=== PATIENT | female | born 1975 | race Caucasian/White ===

== ENCOUNTER 2016-03-10 21:33 | Inpatient (IN) | payer BC ==
[2016-03-10] MEDS ORDERED: Albuterol/Ipratropium Neb 3 ML NEB NEB ONE (21:51)
[2016-03-10] MEDS ORDERED: METHYLPREDNISOLONE 125 MG/2 ML VIAL IV ONE (21:54)
--- NOTE | 2016-03-10 21:56 | DIRPT ---
CLINICAL DATA: Cough, congestion for 3 days EXAM: CHEST 2 VIEW COMPARISON: FINDINGS: Cardiomediastinal silhouette is stable. There is patchy infiltrate/ pneumonia in right lower lobe. Follow-up to resolution is recommended. No pulmonary edema. IMPRESSION: Patchy infiltrate/ pneumonia in right lower lobe. Follow-up to resolution after appropriate treatment is recommended. Electronically Signed By: Jerrell Roche M.D. On: 03/10/2016 21:53
--- NOTE | 2016-03-10 21:57 | EDPRACDOC ---
- History of Present Illness Symptoms Started: 1 WEEK HPI: PT PRESENTS TODAY WITH COUGH/CONGESTION AND N/V X 1 WEEK. TNTC VOMITING TODAY. INTERMITTENT/SUBJECTIVE FEVERS. PT STATES SHE WAS SEEN AT [facility] YESTERDAY AND "ALL THEY DID WAS GIVE ME SOME FLUIDS AND SOME ZOFRAN". PT STATES SHE HAS PMH OF ASTHMA AND HAS BEEN OUT OF AN INHALER FOR AWHILE. PT TACHYPNEIC AND UNABLE TO WALK DOWN THE VELEZ W/OUT SEVERE SHOB. PT APPARENTLY IN RESPIRATORY DISTRESS. Symptoms: Reports: Cough, Fever, Nasal Symptoms, Nausea, Vomiting Recent Medications: Reports: None Relevant History Of: Reports: Asthma Shortness of Breath: Moderate Cough Frequency: Persistent Cough Description: Reports: Strong, Congested Rhinorrhea: Reports: None Ear Symptoms: Reports: None Associated Signs and Symptoms: Reports: Cough, Fever, Nausea, Vomiting <Janae Hickman - Last Filed: 03/10/16 22:28> <Cyril Clements - Last Filed: 03/11/16 01:03> - General Information Stated Complaint: FEVER/COUGH Time Seen by Provider: 03/10/16 21:44 Home Medications: Home Medications Albuterol Sulfate [Proventil] 0.5 ml IH Q4-6H PRN 03/29/12 Albuterol Sulfate [Proventil] 0.5 ml NEB Q4-6H PRN 03/29/12 Amoxicillin Trihydrate [Amoxicillin] 500 mg PO TID #30 tab 02/07/15 Allergies/Adverse Reactions: Allergies Allergy/AdvReac Type Severity Reaction Status Date / Time aspirin Allergy Unknown/See Verified 02/07/15 22:06 Comments ciprofloxacin [From Cipro] Allergy Hives* Verified 02/07/15 22:06 ED Past Medical History - History Reviewed Yes Nurses notes reviewed and agree except as marked - Patient Medical History Respiratory History: Reports: Asthma - Social Medical History Smoking Status: Never smoker <Janae Hickman - Last Filed: 03/10/16 22:28> EDM Review of Systems - Review of Systems ROS Negative Except as Marked: Yes All systems reviewed and were negative except as marked Constitutional: Fever, Fatigue Eyes: No Symptoms Reported Ears: No Symptoms Reported Throat: No Symptoms Reported Nose: Congestion Respiratory: Cough, Shortness of Breath, Wheezing, Asthma Cardiovascular: No Symptoms Reported Gastrointestinal: Nausea, Vomiting Genitourinary: No Symptoms Reported Neurological: No Symptoms Reported Musculoskeletal: No Symptoms Reported Integumentary: No Symptoms Reported <Janae Hickman - Last Filed: 03/10/16 22:28> - Physical Exam Constitutional: Alert, Distress Oriented to: Time, Person, Place Last recorded Vital Signs: Last Vital Signs Temp 98.1 F 03/10/16 21:52 Pulse 102 03/10/16 21:52 Resp 28 H 03/10/16 21:52 BP 157/71 03/10/16 21:52 Pulse Ox 89 L 03/10/16 21:52 Oxygen Pulse Oxygen Saturation 89 O2 Device Room Air Oxygen Flow Rate Fraction of Inspired Oxygen ( FIO2) - HEENT Head: Normal Eye Exam: Normal Oropharynx: Normal Tympanic Membrane: Normal ENT EAC: Normal Nose: Congestion Neck: Normal, Denies Pain, Midline - Respiratory/Cardiovascular Respiratory: Rhonchi, Tachypnea, Wheezes Cardiovascular: Tachycardia - GI Palpation: Normal Tenderness: Non tender - Musculoskeletal Back: Normal Extremities: Normal - Integumentary Skin: Normal Lymphatics: Normal - Neurologic Cerebellar: Normal Mood Description: Normal Thought: Coherent Perception: Normal <Janae Hickman - Last Filed: 03/10/16 22:28> - Physical Exam Last recorded Vital Signs: Last Vital Signs Temp 98.1 F 03/10/16 21:52 Pulse 90 03/11/16 00:41 Resp 24 03/11/16 00:41 BP 103/59 L 03/11/16 00:41 Pulse Ox 92 03/11/16 00:41 Oxygen Pulse Oxygen Saturation 92 O2 Device Nasal Cannula Oxygen Flow Rate 4 Fraction of Inspired Oxygen ( FIO2) <Cyril Clements - Last Filed: 03/11/16 01:03> - EKG EKG #1 EKG Time: 22:08 -: Yes EKG interpreted by me Rate: bpm: 82 [place]: Normal Rhythm: NSR Block: None Hypertrophy: None ST: Normal <Janae Hickman - Last Filed: 03/10/16 22:28> - Results 03/10/16 22:28 03/10/16 22:28 WBC 8.4 xk/uL (3.8-10.8) 03/10/16 22:28 RBC 4.64 xM/uL (4.20-5.40) 03/10/16 22:28 Hgb 12.4 g/dL (12.0-16.0) 03/10/16: Hct 37.0 % (36-47) 03/10/16: MCV 80 fL (81-99) L 03/10/16 22: MCH 26.8 pg (27-32) L 03/10/16: MCHC 33.6 g/dl (33-36) 03/10/16: RDW 13.8 % (11.5-14.5) 03/10/16 22: Plt Count 205 xk/uL (130-400) 03/10/16: MPV 9.9 fL (7.4-10.4) 03/10/16: Neut % (Auto) 65.7 % (45-76) 03/10/16: Lymph % (Auto) 26.4 % (17-44) 03/10/16: Power % (Auto) 5.1 % (3-10) 03/10/16: Eos % (Auto) 1.5 % (0-5) 03/10/16: Baso % (Auto) 1.3 % (0-2) 03/10/16: Absolute Neuts (auto) 5.46 xk/uL (1.7-8.2) 03/10/16: Absolute Lymphs (auto) 2.18 xk/uL (0.65-4.75) 03/10/16: PT 10.6 SEC (9.2-11.2) 03/10/16: INR 1.0 03/10/16 22: APTT 27.9 SEC (22-35) 03/10/16 22: Puncture Site Right radial 03/10/16 22:00 pH 7.400 pH UNITS (7.35-7.45) 03/10/16 22:00 pCO2 36.0 mmHg (35-45) 03/10/16 22:00 pO2 57.0 mmHg (80-100) L 03/10/16 22:00 HCO3 22.3 MMOL/L (22-26) 03/10/16 22:00 Total CO2 23.4 MMOL/L (23-27) 12/24/16 22:00 Base Excess -2.0 (+/- 2) 03/10/16 22:00 FiO2 % 21 03/10/16 22:00 Specimen Drawn By Canlar 03/10/16 22:00 Sodium 139 mEq/L (137-146) 03/10/16 22:28 Potassium 3.6 mEq/L (3.5-5.1) 03/10/16 22:28 Chloride 103 mEq/L (98-107) 03/10/16 22:28 Carbon Dioxide 23 mMOL/L (22-33) 03/10/16 22:28 Anion Gap 17 mEq/L (8-16) H 03/10/16 22:28 BUN 11 MG/DL (7-17) 03/10/16 22:28 Creatinine 0.80 MG/DL (0.52-1.04) 03/10/16 22:28 Estimated GFR (MDRD) > 60 mL/min (>=60) 03/10/16 22:28 Glucose 119 MG/DL (70-99) H 03/10/16 22:28 Calculated Osmolality 268 MOs/Kg (270-290) L 03/10/16 22:28 Calcium 8.0 MG/DL (8.4-10.2) L 03/10/16 22:28 Corrected Calcium 8.3 MG/DL (8.4-10.2) L 03/10/16 22:28 Total Bilirubin 0.4 MG/DL (0.2-1.3) 03/10/16 22:28 AST 50 IU/L (14-36) H 03/10/16 22:28 ALT 40 IU/L (9-52) 03/10/16 22:28 Alkaline Phosphatase 84 IU/L (38-126) 03/10/16 22:28 Troponin I < 0.01 ng/mL (<.04) 03/10/16 22:28 Total Protein 7.2 G/DL (6.3-8.2) 03/10/16 22:28 Albumin 3.7 G/DL (3.5-5.0) 03/10/16 22:28 Urine Color Yellow 03/10/16 23:38 Urine Clarity Cldy 03/10/16 23:38 Urine pH 5.0 (5.0-8.0) 03/10/16 23:38 Ur Specific [place] 1.030 (1.003-1.035) 03/10/16 23:38 Urine Protein 1+ (NEG/TRACE) H 03/10/16 23:38 Urine Glucose (UA) Neg (NEGATIVE) 03/10/16 23:38 Urine Ketones 3+ (NEGATIVE) H 03/10/16 23:38 Urine Occult Blood Neg (NEG/TRACE) 03/10/16 23:38 Urine Nitrite Neg (NEGATIVE) 03/10/16 23:38 Urine Bilirubin Neg (NEGATIVE) 03/10/16 23:38 Urine Urobilinogen <2.0 MG/DL (0-1) 03/10/16 23:38 Ur Leukocyte Esterase Neg (NEGATIVE) 03/10/16 23:38 Urine RBC 0-2 (0-5) 03/10/16 23:38 Urine WBC 0-2 (0-5) 03/10/16 23:38 Ur Epithelial Cells 3+ 03/10/16 23:38 Urine Bacteria Few (NEG/FEW) 03/10/16 23:38 Urine Mucus Occ (NEG/OCC) 03/10/16 23:38 Lab Results 03/10/16 03/10/16 03/10/16 23:38 22:28 22:28 WBC 8.4 RBC 4.64 Hgb 12.4 Hct 37.0 MCV 80 L MCH 26.8 L MCHC 33.6 RDW 13.8 Plt Count 205 MPV 9.9 Neut % (Auto) 65.7 Lymph % (Auto) 26.4 Power % (Auto) 5.1 Eos % (Auto) 1.5 Baso % (Auto) 1.3 Absolute Neuts (auto) 5.46 Absolute Lymphs (auto) 2.18 PT 10.6 INR 1.0 APTT 27.9 Puncture Site pH pCO2 pO2 HCO3 Total CO2 Base Excess FiO2 % Specimen Drawn By Sodium Potassium Chloride Carbon Dioxide Anion Gap BUN Creatinine Estimated GFR (MDRD) Glucose Calculated Osmolality Calcium Corrected Calcium Total Bilirubin AST ALT Alkaline Phosphatase Troponin I Total Protein Albumin Urine Color Yellow Urine Clarity Cldy Urine pH 5.0 Ur Specific [place] 1.030 Urine Protein 1+ H Urine Glucose (UA) Neg Urine Ketones 3+ H Urine Occult Blood Neg Urine Nitrite Neg Urine Bilirubin Neg Urine Urobilinogen <2.0 Ur Leukocyte Esterase Neg Urine RBC 0-2 Urine WBC 0-2 Ur Epithelial Cells 3+ Urine Bacteria Few Urine Mucus Occ 03/10/16 03/10/16 22:28 22:00 WBC RBC Hgb Hct MCV MCH MCHC RDW Plt Count MPV Neut % (Auto) Lymph % (Auto) Power % (Auto) Eos % (Auto) Baso % (Auto) Absolute Neuts (auto) Absolute Lymphs (auto) PT INR APTT Puncture Site Right radial pH 7.400 pCO2 36.0 pO2 57.0 L HCO3 22.3 Total CO2 23.4 Base Excess -2.0 FiO2 % 21 Specimen Drawn By Canlar Sodium 139 Potassium 3.6 Chloride 103 Carbon Dioxide 23 Anion Gap 17 H BUN 11 Creatinine 0.80 Estimated GFR (MDRD) > 60 Glucose 119 H Calculated Osmolality 268 L Calcium 8.0 L Corrected Calcium 8.3 L Total Bilirubin 0.4 AST 50 H ALT 40 Alkaline Phosphatase 84 Troponin I < 0.01 Total Protein 7.2 Albumin 3.7 Urine Color Urine Clarity Urine pH Ur Specific [place] Urine Protein Urine Glucose (UA) Urine Ketones Urine Occult Blood Urine Nitrite Urine Bilirubin Urine Urobilinogen Ur Leukocyte Esterase Urine RBC Urine WBC Ur Epithelial Cells Urine Bacteria Urine Mucus <Cyril Clements - Last Filed: 03/11/16 01:03> - Departure Disposition: Admit IP To This Hospital <Janae Hickman - Last Filed: 03/10/16 22:28> - Departure Yes I personally saw and evaluated the patient. Disposition: Admit IP To This Hospital Decision to Admit Time: 01:02 Decision to admit date: 03/11/16 Decision to admit: from ED - Physician Consulted Hospitalist Time Called: 01:03 Provider Called: Elida Randolph Time Security Agent Returned Call: 01:03 <Cyril Clements - Last Filed: 03/11/16 01:03> - Departure Condition: Stable Final Diagnosis: Hypoxia, Dehydration Pneumonia Qualifiers: Pneumonia type: due to unspecified organism Laterality: right Lung location: lower lobe of lung Qualified Code(s): J18.1 - Lobar pneumonia, unspecified organism Nausea & vomiting Qualifiers: Vomiting type: unspecified Vomiting Intractability: non-intractable Qualified Code(s): R11.2 - Nausea with vomiting, unspecified
[2016-03-10] MEDS ORDERED: ONDANSETRON HCL 4 MG/2 ML VIAL IV ONE (22:00)
[2016-03-10 22:05] LABS: ALLEN'S TEST PASS
[2016-03-10 22:06] LABS: ABG Draw Site Right Radial; TCO2 23.4 MMOL/L (23-27)
[2016-03-10] MEDS ORDERED: ACETAMINOPHEN WITH CODEINE 5 ML UDC PO ONE (22:27)
[2016-03-10] MEDS ORDERED: AZITHROMYCIN 500 MG in D5W 250 ML IV ONE (22:29)
[2016-03-10] MEDS ORDERED: CEFTRIAXONE 1 GM in D5W 100 ML IV ONE (22:29)
[2016-03-10 22:38] LABS: AUTOMATED BASOPHIL 1.3 % (0-2); AUTOMATED EOSINOPHIL 1.5 % (0-5); AUTOMATED LYMPH 26.4 % (17-44); AUTOMATED MONOCYTE 5.1 % (3-10); AUTOMATED NEUTROPHIL 65.7 % (45-76); MPV 9.9 fL (7.4-10.4)
[2016-03-10 22:47] LABS: PARTIAL THROMB. TIME 27.9 SEC (22-35)
[2016-03-10 22:48] LABS: BLOOD UREA NITROGEN 11 MG/DL (7-17); CALC CORRECTED 8.3 MG/DL (8.4-10.2); CALCULATED OSMOLALITY 268 MOs/Kg (270-290); CHLORIDE 103 mEq/L (98-107); GLUCOSE 119 MG/DL (70-99); SODIUM LEVEL 139 mEq/L (137-146); TOTAL PROTEIN 7.2 G/DL (6.3-8.2)
[2016-03-10] MEDS: NS 1,000 ML IV SCH (23:11)
[2016-03-10 23:56] LABS: LEUKOCYTES/URINE NEG (NEGATIVE); NITRITE/URINE NEG (NEGATIVE); RBC/URINE 0-2 (0-5); URINE OCCULT BLOOD NEG (NEG/TRACE); WBC/URINE 0-2 (0-5)
[2016-03-11] MEDS ORDERED: NS 1,000 ML IV ONE (00:59)
[2016-03-11] MEDS ORDERED: BENZONATATE 100 MG PERLES PO PRN (01:05)
[2016-03-11] MEDS ORDERED: SIMETHICONE 80 MG TAB PO PRN (01:05)
[2016-03-11] MEDS ORDERED: TEMAZEPAM 15 MG CAP PO PRN (01:05)
[2016-03-11] MEDS ORDERED: ACETAMINOPHEN 325 MG/TAB TABLET PO PRN (01:05)
[2016-03-11] MEDS ORDERED: ONDANSETRON HCL 4 MG/2 ML VIAL IV PRN (01:05)
[2016-03-11] MEDS ORDERED: METOCLOPRAMIDE 10 MG/2 ML VIAL IV PRN (01:05)
[2016-03-11] MEDS ORDERED: ACETAMINOPHEN 650 MG SUPP PR PRN (01:05)
[2016-03-11] MEDS ORDERED: GUAIFEN 100 MG-DEXTROMETH 10 MG PER 5 ML PO PRN (01:09)
--- NOTE | 2016-03-11 01:10 | HISTPHYS ---
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 She states she has been sick with nausea and vomiting for 3-4 days and low grade fevers and chills, but was afraid to miss work. She went to [facility] two nights ago, but was diagnosed with gastroenteritis and discharged home. Since then she has been wheezing, coughing, and hoarse with progressive difficulty breathing. She presented to our ED tonight for evaluation and a chest x-ray showed a right lower lobe pneumonia. Her pO2 is only 57 on room air. She does not smoke. She will be admitted for evaluation and management of pneumonia and hypoxia. - Medical History Cardiac History: Reports: Hypertension Respiratory History: Reports: Asthma, Cough GI/ History: Reports: No Significant History Musculoskeletal History: Reports: No Significant History Systemic History: Reports: Anemia, Other (dysfunctional uterine bleeding) Neurological History: Reports: No Significant History Psychological History: Reports: Depression, Anxiety - Surgical History Reports: Hysterectomy, Tonsillectomy/Adnoidectomy - Medictions/Allergies Allergies aspirin Allergy (Verified 02/07/15 22:06) Unknown/See Comments VOMITING ciprofloxacin [From Cipro] Allergy (Verified 02/07/15 22:06) Hives* Current Medication List: Reviewed Home Medications Albuterol Sulfate [Proventil] 0.5 ml IH Q4-6H PRN 03/29/12 Albuterol Sulfate [Proventil] 0.5 ml NEB Q4-6H PRN 03/29/12 Amoxicillin Trihydrate [Amoxicillin] 500 mg PO TID #30 tab 02/07/15 - Family History Reports: Hypertension, Diabetes, Cardiac Disorders - Social History Travel Outside of [place] in the Last 3 Months?: No Lives: With Family Smoking Status: Former smoker Social History: Denies: Alcohol Use - Review of Systems Constitutional: Chills, Fever, Weakness Eyes: No Symptoms Reported Ears: No Symptoms Reported Nose: No Symptoms Reported Mouth: No Symptoms Reported Throat/Neck: Pain, Hoarseness Respiratory: Cough, Shortness of Breath, Wheezing, Asthma Cardiovascular: Chest Pain Gastrointestinal: Nausea, Vomiting Genitourinary: Other (s/p hysterectomy) Neurological: Dizziness, Headache, Weakness Musculoskeletal:: Weakness Integumentary: No Symptoms Reported Allergic/Immunologic: No Symptoms Reported Hematologic: No Symptoms Reported Endocrine: Weight Gain Psychiatric: Anxiety, Depression - Physical Exam Vital Signs: Initial Vitals Temperature 98.1 F 03/10/16 21:52 Pulse Rate 102 03/10/16 21:52 Respiratory Rate 28 H 03/10/16 21:52 Blood Pressure 157/71 03/10/16 21:52 Pulse Oxygen Saturation 89 L 03/10/16 21:52 Constitutional: Alert, Distress (difficulty breathing), Restless Oriented to: Time, Person, Place - HEENT Head: Normal Eye: Normal (PERRL; EOMI) Oropharynx: Normal, Red (posterior pharynx). negative: Exudate, Tonsillar Hypertrophy, [place] Tympanic Membrane: Normal ENT EAC: Normal Nose: negative: Bleeding, Congestion, Discharge, Deformity Respiratory: Rales, Rhonchi, Tachypnea, Wheezes Cardiovascular: Tachycardia - GI Auscultation: Normal Palpation: Normal. negative: Enlarged liver, Enlarged spleen, Fluid Wave, Mass Tenderness: Non tender Bailey's Sign: Negative Rectal Exam: Deferred - Exam Deferred: Yes - Musculoskeletal Back: Normal. negative: CVA Tenderness Extremities: Normal, Pedal Pulse (normal), Radial Pulse (noraml). negative: Calf Tenderness, Clubbing, Cyanosis, Edema Spine: normal alignment, normal inspection - Integumentary Skin: Hot, Dry, Flushed Lymphatics: Normal - Neurologic Memory Impaired: Normal Motor Function: Normal Cranial Nerve: Normal Cerebellar: Normal Mood Description: Anxious Thought: Coherent Perception: Normal - Focused CV Perfusion Exam Date exam occurred: 03/11/16 Time of Exam: 01:15 Vital Signs: Last Vital Signs Temp 98.1 F 03/10/16 21:52 Pulse 90 03/11/16 00:41 Resp 24 03/11/16 00:41 BP 103/59 L 03/11/16 00:41 Pulse Ox 92 03/11/16 00:41 Respiratory: Accessory muscle use, Rales, Rhonchi Cardiovascular/Chest: Tachycardia Peripheral pulses: Full: Radial (R), Radial (L), Dorsalis pedis (R), Dorsalis pedis (L), Posterior tibialis (R), Posterior tibialis (L) Skin Color: Flushed Skin Turgor: <3 Seconds - Lab Results Laboratory Tests 03/10/16 03/10/16 03/10/16 22:00 22:28 22:28 WBC 8.4 Hgb 12.4 Hct 37.0 Plt Count 205 Neut % (Auto) 65.7 Lymph % (Auto) 26.4 PT INR APTT Puncture Site Right radial pH 7.400 pCO2 36.0 pO2 57.0 L HCO3 22.3 Total CO2 23.4 Base Excess -2.0 FiO2 % 21 Sodium 139 Potassium 3.6 Chloride 103 Carbon Dioxide 23 Anion Gap 17 H BUN 11 Creatinine 0.80 Estimated GFR (MDRD) > 60 Glucose 119 H Calculated Osmolality 268 L Corrected Calcium 8.3 L AST 50 H ALT 40 Troponin I < 0.01 Urine Color Urine Clarity Urine pH Ur Specific [place] Urine Protein Urine Glucose (UA) Urine Ketones Urine Nitrite Urine RBC Urine WBC Urine Bacteria 03/10/16 03/10/16 22:28 23:38 WBC Hgb Hct Plt Count Neut % (Auto) Lymph % (Auto) PT 10.6 INR 1.0 APTT 27.9 Puncture Site pH pCO2 pO2 HCO3 Total CO2 Base Excess FiO2 % Sodium Potassium Chloride Carbon Dioxide Anion Gap BUN Creatinine Estimated GFR (MDRD) Glucose Calculated Osmolality Corrected Calcium AST ALT Troponin I Urine Color Yellow Urine Clarity Cldy Urine pH 5.0 Ur Specific [place] 1.030 Urine Protein 1+ H Urine Glucose (UA) Neg Urine Ketones 3+ H Urine Nitrite Neg Urine RBC 0-2 Urine WBC 0-2 Urine Bacteria Few - Diagnostic Findings CXR: IMPRESSION: Patchy infiltrate/ pneumonia in right lower lobe. Follow-up to resolution after appropriate treatment is recommended. Electronically Signed By: Jerrell Roche M.D. On: 03/10/2016 21:53 - Assessment (1) Sepsis A41.9 - SEPSIS, UNSPECIFIED ORGANISM Acute Present on Admission: Yes Qualifiers: Sepsis type: sepsis due to unspecified organism Qualified Code(s): A41.9 - Sepsis, unspecified organism Admit. Sepsis is characterized by tachypnea, tachycardia, fever, pneumonia, and hypoxia. Will obtain appropriate blood cultures attempt to obtain sputum for culture, and begin broad spectrum antibiotics. Begin aggressive fluid resuscitation. (2) Pneumonia J18.9 - PNEUMONIA, UNSPECIFIED ORGANISM Acute Present on Admission: Yes Qualifiers: Pneumonia type: aspiration pneumonia Laterality: right Lung location: lower lobe of lung Qualified Code(s): J18.1 - Lobar pneumonia, unspecified organism Quite possibly an aspiration pneumonia resulting from her recent viral gastroenteritis. However, it may be community acquired pneumonia that caused nausea & vomiting as part of the toxicity of the infection. Will treat with Rocephin and Zithromax initially, and follow along. (3) Hypoxia R09.02 - HYPOXEMIA Acute Present on Admission: Yes Provide supplemental oxygen, monitor O2 saturation, keep sats above 92%. Check ABG and CXR intermittently in follow-up. (4) Dehydration E86.0 - DEHYDRATION Acute Present on Admission: Yes IV fluids for rehydration. 30 mL/kg initially in the first 6 hrs, then maintenance fluids. (5) Nausea & vomiting R11.2 - NAUSEA WITH VOMITING, UNSPECIFIED Acute Present on Admission: Yes Qualifiers: Vomiting type: unspecified Vomiting Intractability: non-intractable Qualified Code(s): R11.2 - Nausea with vomiting, unspecified Anti-emetics as needed. Case Care Discussed with: Patient, Nursing Staff Total Time: 65 min Critical Care: Yes Couseling Time (>50% in counseling/coordination): No Code: 291
[2016-03-11] MEDS: NS 1,000 ML IV SCH ×5 (01:17→04:26)
[2016-03-11] MEDS ORDERED: GLUCAGON 1 MG VIAL SQ PRN (01:52)
[2016-03-11] MEDS ORDERED: GLUCOSE (ORAL GEL) 15 GM TUBE PO PRN (01:52)
[2016-03-11] MEDS ORDERED: DEXTROSE 25 GM/50 ML PFS IV PRN (01:52)
[2016-03-11] MEDS ORDERED: METHYLPREDNISOLONE 125 MG/2 ML VIAL IV ONE (02:00)
[2016-03-11] MEDS: Albuterol/Ipratropium Neb 3 ML NEB NEB SCH ×4 (02:46→19:57)
[2016-03-11] MEDS ORDERED: Vaccine Screening Complete SCH (03:00)
[2016-03-11] MEDS: SODIUM CHLORIDE 0.9% 3 ML FLUSH FLUSH SCH ×2 (05:06→17:41)
[2016-03-11] MEDS: REGULAR INSULIN 100 UNITS/ML - 3 ML VIAL SQ SCH ×4 (06:25→21:39)
[2016-03-11] MEDS ORDERED: METHYLPREDNISOLONE 125 MG/2 ML VIAL IV SCH (08:00)
[2016-03-11] MEDS: TUSSIONEX 5 ML ORAL SYRINGE PO SCH ×2 (11:12→21:38)
[2016-03-11] MEDS: BENZONATATE 100 MG PERLES PO SCH ×2 (11:12→17:43)
[2016-03-11] MEDS: PROBIOTIC BLEND TAB PO SCH ×2 (11:15→17:41)
[2016-03-11] MEDS ORDERED: OXYMETAZOLINE 0.05% NASAL SPRAY NAS SCH (14:00)
[2016-03-11] MEDS ORDERED: PROBIOTIC BLEND TAB PO SCH ×2 (14:00→18:00)
[2016-03-11] MEDS ORDERED: FLUTICASONE PROPIONATE 16 GM BOT NAS SCH (14:00)
[2016-03-11] MEDS: FLUTICASONE PROPIONATE 16 GM BOT NAS SCH ×2 (14:19→21:39)
[2016-03-11] MEDS: METHYLPREDNISOLONE 125 MG/2 ML VIAL IV SCH ×2 (14:19→21:39)
[2016-03-11] MEDS: OXYMETAZOLINE 0.05% NASAL SPRAY NAS SCH ×2 (14:19→21:40)
[2016-03-11] MEDS: AZITHROMYCIN 250 MG TAB PO SCH (17:41)
[2016-03-11] MEDS ORDERED: ZOLPIDEM TARTRATE 5 MG TAB PO SCH (21:00)
[2016-03-11] MEDS: AZITHROMYCIN 500 MG in D5W 250 ML IV SCH (21:38)
[2016-03-11] MEDS: MONTELUKAST SODIUM 10 MG TAB PO SCH (21:40)
[2016-03-11] MEDS: Albuterol/Ipratropium Neb 3 ML NEB NEB PRN (22:28)
[2016-03-11] MEDS: CEFTRIAXONE 1 GM in D5W 100 ML IV SCH (23:38)
[2016-03-12] MEDS: Albuterol/Ipratropium Neb 3 ML NEB NEB SCH ×4 (01:49→19:34)
[2016-03-12] MEDS: BENZONATATE 100 MG PERLES PO SCH ×3 (02:09→17:41)
[2016-03-12] MEDS: METHYLPREDNISOLONE 125 MG/2 ML VIAL IV SCH ×5 (02:10→21:11)
[2016-03-12] MEDS: SODIUM CHLORIDE 0.9% 3 ML FLUSH FLUSH SCH ×2 (05:29→17:40)
[2016-03-12 05:39] LABS: AUTOMATED BASOPHIL 0.2 % (0-2); AUTOMATED LYMPH 15.9 % (17-44); AUTOMATED MONOCYTE 3.6 % (3-10); AUTOMATED NEUTROPHIL 80.3 % (45-76); MPV 10.2 fL (7.4-10.4)
[2016-03-12 05:57] LABS: BLOOD UREA NITROGEN 7 MG/DL (7-17); CALCULATED OSMOLALITY 273 MOs/Kg (270-290); CHLORIDE 106 mEq/L (98-107); GLUCOSE 142 MG/DL (70-99); SODIUM LEVEL 142 mEq/L (137-146)
[2016-03-12] MEDS: REGULAR INSULIN 100 UNITS/ML - 3 ML VIAL SQ SCH ×4 (06:07→21:15)
[2016-03-12] MEDS ORDERED: PNEUMOCOCCAL 0.5 ML VIAL IM ONE (08:00)
--- NOTE | 2016-03-12 08:17 | GENMEDPROG ---
Chief Complaint: sl less sob coughing minimal sputum production Complains of hallucinating with Ambien last night. Notes Reviewed: Yes Events from last night noted and discussed with Clinical Staff Current Medication List: Reviewed Currently: Reports: Cough, Wheezing, [place] DVT Prophylaxis: Yes - Physical Examination Vital Signs and I&O: Last Vital Signs Temp 97.5 F 03/12/16 05:09 Pulse 73 03/12/16 07:48 Resp 18 03/12/16 07:48 BP 111/70 03/12/16 05:09 Pulse Ox 93 03/12/16 07:48 Oxygen Pulse Oxygen Saturation 93 O2 Device Nasal Cannula Oxygen Flow Rate 3 Fraction of Inspired Oxygen ( FIO2) Intake & Output 03/09/16 03/10/16 03/11/16 03/12/16 23:59 23:59 23:59 23:59 Intake Total 5017 398 Output Total 4000 400 Balance 1017 -2 Patient's weight 110.336 kg 111.175 kg General: Alert, Oriented x3, No acute distress, Well appearing, Well nourished HEENT: Normal (Normocephalic, atraumatic;EOMI.Sclera white, Nares patent, without discharge or bleeding. No oropharyngeal lesions or erythema. Mucous membranes are dry.) Neck: Non-tender, Full range of motion, Normal Trachea alignment, Normal inspection (No cervical lymphadenopathy. No supraclavicular lymphadenopathy.), No Masses palpable, Supple Lymphatics: Normal Respiratory: Rales, Rhonchi, Wheezes Cardiovascular: Regular rate and rhythm (No bradycardia or tachycardia), Normal S1, No Gallops,Rubs/Murmurs, Normal S2, Good Pedal Pulses (DP pulses 2+ bilaterally) GI: Normal bowel sounds (normal active sounds), Soft (non-distended), Non tender , No hepatospenomegaly, No masses Extremities/Musculoskeletal: Normal pulses (DP pulses 2+ bilaterally) Skin: Warm,Dry and Intact, No rashes, No significant lesion Neurological: Strength at 5/5 X4 ext (Motor 5/5 throughout.), Normal tone, Cranial nerves 3-12 NL ( 2-12 grossly intact.) Psych/Mental Status: Appropriate, Normal Affect Lab/DI/Studies Reviewed: 03/12/16 05:12 03/12/16 05:12 Laboratory Results - last 24 hr 03/11/16 03/11/1603/11/16 10:40 11:02 17:14 WBC RBC Hgb Hct MCV MCH MCHC RDW Plt Count MPV Neut % (Auto) Lymph % (Auto) [place] % (Auto) Eos % (Auto) Baso % (Auto) Absolute Neuts (auto) Absolute Lymphs (auto) Sodium Potassium Chloride Carbon Dioxide Anion Gap BUN Creatinine Estimated GFR (MDRD) Glucose POC Capillary Glucose 206 H 157 H Calculated Osmolality Lactic Acid 2.2 H Calcium 03/11/16 03/12/16 03/12/16 20:56 04:52 05:12 WBC RBC Hgb Hct MCV MCH MCHC RDW Plt Count MPV Neut % (Auto) Lymph % (Auto) [place] % (Auto) Eos % (Auto) Baso % (Auto) Absolute Neuts (auto) Absolute Lymphs (auto) Sodium 142 Potassium 4.0 Chloride 106 Carbon Dioxide 26 Anion Gap 14 BUN 7 Creatinine 0.60 Estimated GFR (MDRD) > 60 Glucose 142 H POC Capillary Glucose 204 H 144 H Calculated Osmolality 273 Lactic Acid Calcium 8.0 L 03/12/16 05:12 WBC 7.5 RBC 4.51 Hgb 12.0 Hct 36.5 MCV 81 MCH 26.6 L MCHC 32.9 L RDW 14.6 H Plt Count 203 MPV 10.2 Neut % (Auto) 80.3 H Lymph % (Auto) 15.9 L [place] % (Auto) 3.6 Eos % (Auto) 0.0 Baso % (Auto) 0.2 Absolute Neuts (auto) 6.00 Absolute Lymphs (auto) 1.13 Sodium Potassium Chloride Carbon Dioxide Anion Gap BUN Creatinine Estimated GFR (MDRD) Glucose POC Capillary Glucose Calculated Osmolality Lactic Acid Calcium - Assessment (1) Pneumonia Acute J18.9 - PNEUMONIA, UNSPECIFIED ORGANISM Qualifiers: Pneumonia type: aspiration pneumonia Laterality: right Lung location: lower lobe of lung Comment/Plan: Quite possibly an aspiration pneumonia resulting from her recent viral gastroenteritis. However, it may be community acquired pneumonia that caused nausea & vomiting as part of the toxicity of the infection. Will treat with Rocephin and Zithromax initially, and follow along. (2) Hypoxia Acute R09.02 - HYPOXEMIA Comment/Plan: Provide supplemental oxygen, monitor O2 saturation, keep sats above 92%. Check ABG and CXR intermittently in follow- up. (3) Impaired glucose tolerance Acute R73.02 - IMPAIRED GLUCOSE TOLERANCE (ORAL) Comment/Plan: hgb a1c microalb pd. Steroids going to make this worse. Ssi ordered (4) Asthma Acute J45.909 - UNSPECIFIED ASTHMA, UNCOMPLICATED Qualifiers: Asthma severity: moderate persistent Asthma complication type: with acute exacerbation Qualified Code(s): J45.41 - Moderate persistent asthma with ( acute) exacerbation Comment/Plan: singulair steroids nebs helping some (5) Sepsis Resolved A41.9 - SEPSIS, UNSPECIFIED ORGANISM Qualifiers: Sepsis type: sepsis due to unspecified organism Qualified Code(s): A41.9 - Sepsis, unspecified organism Comment/Plan: Patient doing much better now sepsis appears resolved. Case Care Discussed with: Patient, Nursing Staff Education/Counseling Given To: Patient Education/Counseling Given Regarding: Diagnosis Total Time: 39 min Critical Care: No Code: 70394 (12+)
[2016-03-12] MEDS: OXYMETAZOLINE 0.05% NASAL SPRAY NAS SCH ×2 (09:11→21:11)
[2016-03-12] MEDS: FLUTICASONE PROPIONATE 16 GM BOT NAS SCH ×2 (09:12→21:11)
[2016-03-12] MEDS: TUSSIONEX 5 ML ORAL SYRINGE PO SCH ×2 (09:17→21:10)
[2016-03-12] MEDS: PROBIOTIC BLEND TAB PO SCH ×2 (11:59→17:39)
[2016-03-12] MEDS: ENOXAPARIN 60 MG/0.6 ML PFS SQ SCH (17:39)
[2016-03-12] MEDS: AZITHROMYCIN 250 MG TAB PO SCH (17:40)
[2016-03-12] MEDS: MONTELUKAST SODIUM 10 MG TAB PO SCH (21:11)
[2016-03-12] MEDS: AZITHROMYCIN 500 MG in D5W 250 ML IV SCH (21:11)
[2016-03-12] MEDS: DOCUSATE-SENNA CONCENTRATE TAB PO PRN (21:11)
[2016-03-12] MEDS: CEFTRIAXONE 1 GM in D5W 100 ML IV SCH (23:06)
[2016-03-13] MEDS: Albuterol/Ipratropium Neb 3 ML NEB NEB SCH ×4 (02:42→19:55)
[2016-03-13] MEDS: METHYLPREDNISOLONE 125 MG/2 ML VIAL IV SCH ×4 (03:04→22:16)
[2016-03-13] MEDS: BENZONATATE 100 MG PERLES PO SCH ×3 (03:04→18:11)
[2016-03-13] MEDS ORDERED: NS 500 ML IV ONE (04:46)
[2016-03-13] MEDS: REGULAR INSULIN 100 UNITS/ML - 3 ML VIAL SQ SCH ×4 (05:33→21:06)
[2016-03-13] MEDS: SODIUM CHLORIDE 0.9% 3 ML FLUSH FLUSH SCH ×2 (05:33→18:11)
[2016-03-13] MEDS: OXYMETAZOLINE 0.05% NASAL SPRAY NAS SCH ×2 (08:00→22:15)
[2016-03-13] MEDS ORDERED: PNEUMOCOCCAL 0.5 ML VIAL IM ONE (08:00)
[2016-03-13] MEDS: FLUTICASONE PROPIONATE 16 GM BOT NAS SCH ×2 (08:01→22:15)
[2016-03-13] MEDS: TUSSIONEX 5 ML ORAL SYRINGE PO SCH ×2 (09:19→22:34)
--- NOTE | 2016-03-13 10:07 | GENMEDPROG ---
Chief Complaint: Patient resting awakened easily. Subjective Note: 40-year-old female admitted to our facility with pneumonia and hypoxemia. She slowly improving but still requiring oxygen by nasal cannula. Notes Reviewed: Yes Events from last night noted and discussed with Clinical Staff Current Medication List: Reviewed Currently: Reports: Cough, Wheezing, VELASQUEZ DVT Prophylaxis: Yes - Physical Examination Vital Signs and I&O: Last Vital Signs Temp 97.6 F 03/13/16 05:36 Pulse 88 03/13/16 05:36 Resp 18 03/13/16 05:36 BP 101/61 03/13/16 05:36 Pulse Ox 92 03/13/16 09:28 Oxygen Pulse Oxygen Saturation 92 O2 Device Nasal Cannula Oxygen Flow Rate 4 Fraction of Inspired Oxygen ( FIO2) Intake & Output 03/10/16 03/11/16 03/12/16 03/13/16 23:59 23:59 23:59 23:59 Intake Total 5017 1118 685 Output Total 4000 2300 1200 Balance 7205 -2602 -482 Patient's weight 110.336 kg 111.175 kg 111.221 kg General: Alert, Oriented x3, No acute distress, Well appearing, Well nourished HEENT: Normal (Normocephalic, atraumatic;EOMI.Sclera white, Nares patent, without discharge or bleeding. No oropharyngeal lesions or erythema. Mucous membranes are dry.) Neck: Non-tender, Full range of motion, Normal Trachea alignment, Normal inspection (No cervical lymphadenopathy. No supraclavicular lymphadenopathy.), No Masses palpable, Supple Lymphatics: Normal Respiratory: Rales, Rhonchi, Wheezes Cardiovascular: Regular rate and rhythm (No bradycardia or tachycardia), Normal S1, No Gallops,Rubs/Murmurs, Normal S2, Good Pedal Pulses (DP pulses 2+ bilaterally) GI: Normal bowel sounds (normal active sounds), Soft (non-distended), Non tender , No hepatospenomegaly, No masses Extremities/Musculoskeletal: Normal pulses (DP pulses 2+ bilaterally) Skin: Warm,Dry and Intact, No rashes, No significant lesion Neurological: Strength at 5/5 X4 ext (Motor 5/5 throughout.), Normal tone, Cranial nerves 3-12 NL ( 2-12 grossly intact.) Psych/Mental Status: Appropriate, Normal Affect Lab/DI/Studies Reviewed: Laboratory Results - last 24 hr 12/26/16 12/26/16 12/26/16 05:12 11:10 16:59 POC Capillary Glucose 141 H 174 H Hemoglobin A1c 6.0 H 03/12/16 03/13/16 20:40 04:28 POC Capillary Glucose 114 H 138 H Hemoglobin A1c - Assessment (1) Pneumonia Acute J18.9 - PNEUMONIA, UNSPECIFIED ORGANISM Qualifiers: Pneumonia type: aspiration pneumonia Laterality: right Lung location: lower lobe of lung Comment/Plan: Quite possibly an aspiration pneumonia resulting from her recent viral gastroenteritis. However, it may be community acquired pneumonia that caused nausea & vomiting as part of the toxicity of the infection. Patient responding to current antibiotic therapy. Continue present care. (2) Hypoxia Acute R09.02 - HYPOXEMIA Comment/Plan: Check ambulating O2 sats today. (3) Impaired glucose tolerance Acute R73.02 - IMPAIRED GLUCOSE TOLERANCE (ORAL) Comment/Plan: Hemoglobin A1c is 6. Urinary microalbumin is pending. Glucoses below 200. (4) Asthma Acute J45.909 - UNSPECIFIED ASTHMA, UNCOMPLICATED Qualifiers: Asthma severity: moderate persistent Asthma complication type: with acute exacerbation Qualified Code(s): J45.41 - Moderate persistent asthma with ( acute) exacerbation Comment/Plan: Continue with Singulair and steroids. Nebs are helping some. (5) Sepsis Resolved A41.9 - SEPSIS, UNSPECIFIED ORGANISM Qualifiers: Sepsis type: sepsis due to unspecified organism Qualified Code(s): A41.9 - Sepsis, unspecified organism Comment/Plan: Patient doing much better now sepsis appears resolved. - Plan Continue present care. Check ambulating O2 sats. Disposition Plan: Hopefully home in the next 24-48 hours Case Care Discussed with: Patient, Nursing Staff Education/Counseling Given To: Patient Education/Counseling Given Regarding: Diagnosis, Treatment, Prognosis Total Time: 45 minutes Critical Care: No Couseling Time (>50% in counseling/coordination): No
[2016-03-13] MEDS: PROBIOTIC BLEND TAB PO SCH ×2 (11:09→18:12)
[2016-03-13] MEDS: ENOXAPARIN 60 MG/0.6 ML PFS SQ SCH (18:11)
[2016-03-13] MEDS: AZITHROMYCIN 250 MG TAB PO SCH (18:11)
[2016-03-13] MEDS: MONTELUKAST SODIUM 10 MG TAB PO SCH (22:16)
[2016-03-13] MEDS: AZITHROMYCIN 500 MG in D5W 250 ML IV SCH (22:17)
[2016-03-13] MEDS: DOCUSATE-SENNA CONCENTRATE TAB PO PRN (22:29)
[2016-03-14] MEDS: CEFTRIAXONE 1 GM in D5W 100 ML IV SCH (00:25)
[2016-03-14] MEDS: Albuterol/Ipratropium Neb 3 ML NEB NEB SCH ×4 (01:13→20:07)
[2016-03-14] MEDS: BENZONATATE 100 MG PERLES PO SCH ×3 (02:52→18:05)
[2016-03-14] MEDS: METHYLPREDNISOLONE 125 MG/2 ML VIAL IV SCH ×4 (03:50→21:10)
[2016-03-14] MEDS: SODIUM CHLORIDE 0.9% 3 ML FLUSH FLUSH SCH ×2 (06:38→17:37)
[2016-03-14] MEDS: REGULAR INSULIN 100 UNITS/ML - 3 ML VIAL SQ SCH ×4 (06:38→21:05)
[2016-03-14] MEDS: OXYMETAZOLINE 0.05% NASAL SPRAY NAS SCH (08:13)
[2016-03-14] MEDS: FLUTICASONE PROPIONATE 16 GM BOT NAS SCH ×2 (08:14→21:05)
[2016-03-14] MEDS: TUSSIONEX 5 ML ORAL SYRINGE PO SCH ×2 (10:13→21:10)
--- NOTE | 2016-03-14 10:51 | GENMEDPROG ---
Chief Complaint: 40-year-old female admitted with hypoxemia and pneumonia Subjective Note: 40-year-old female admitted with hypoxemia pneumonia improving slowly. We are going to check ambulating O2 sats today. She has no vessel slagman. She complained of pain in her groin area when coughing and concerned that she may have a femoral hernia Notes Reviewed: Yes Events from last night noted and discussed with Clinical Staff Current Medication List: Reviewed Currently: Reports: Cough, Wheezing, VELASQUEZ DVT Prophylaxis: Yes - Physical Examination Vital Signs and I&O: Last Vital Signs Temp 98.5 F 03/14/16 05:10 Pulse 73 03/14/16 08:00 Resp 20 03/14/16 08:00 BP 135/81 03/14/16 08:00 Pulse Ox 93 03/14/16 08:25 Oxygen Pulse Oxygen Saturation 93 O2 Device Nasal Cannula Oxygen Flow Rate 2 Fraction of Inspired Oxygen ( FIO2) Intake & Output 03/11/16 03/12/16 03/13/16 03/14/16 23:59 23:59 23:59 23:59 Intake Total 5017 1118 1285 483 Output Total 4000 2300 2150 1600 Balance 1017 -1182 -865 -1117 Patient's weight 110.336 kg 111.175 kg 111.221 kg 111.082 kg General: Alert, Oriented x3, No acute distress, Well appearing, Well nourished HEENT: Normal (Normocephalic, atraumatic;EOMI.Sclera white, Nares patent, without discharge or bleeding. No oropharyngeal lesions or erythema. Mucous membranes are dry.) Neck: Non-tender, Full range of motion, Normal Trachea alignment, Normal inspection (No cervical lymphadenopathy. No supraclavicular lymphadenopathy.), No Masses palpable, Supple Lymphatics: Normal Respiratory: Rales, Rhonchi, Wheezes Cardiovascular: Regular rate and rhythm (No bradycardia or tachycardia), Normal S1, No Gallops,Rubs/Murmurs, Normal S2, Good Pedal Pulses (DP pulses 2+ bilaterally) GI: Normal bowel sounds (normal active sounds), Soft (non-distended), Non tender , No hepatospenomegaly, No masses Extremities/Musculoskeletal: Normal pulses (DP pulses 2+ bilaterally) Skin: Warm,Dry and Intact, No rashes, No significant lesion Neurological: Strength at 5/5 X4 ext (Motor 5/5 throughout.), Normal tone, Cranial nerves 3-12 NL ( 2-12 grossly intact.) Psych/Mental Status: Appropriate, Normal Affect - Assessment (1) Pneumonia Acute J18.9 - PNEUMONIA, UNSPECIFIED ORGANISM Qualifiers: Pneumonia type: aspiration pneumonia Laterality: right Lung location: lower lobe of lung Comment/Plan: Quite possibly an aspiration pneumonia resulting from her recent viral gastroenteritis. However, it may be community acquired pneumonia that caused nausea & vomiting as part of the toxicity of the infection. Patient responding to current antibiotic therapy. Continue present care. (2) Hypoxia Acute R09.02 - HYPOXEMIA Comment/Plan: Check ambulating O2 sats today. (3) Impaired glucose tolerance Acute R73.02 - IMPAIRED GLUCOSE TOLERANCE (ORAL) Comment/Plan: Hemoglobin A1c is 6. Urinary microalbumin is pending. Glucoses below 200. (4) Asthma Acute J45.909 - UNSPECIFIED ASTHMA, UNCOMPLICATED Qualifiers: Asthma severity: moderate persistent Asthma complication type: with acute exacerbation Qualified Code(s): J45.41 - Moderate persistent asthma with ( acute) exacerbation Comment/Plan: Continue with Singulair and steroids. Nebs are helping some. (5) Sepsis Resolved A41.9 - SEPSIS, UNSPECIFIED ORGANISM Qualifiers: Sepsis type: sepsis due to unspecified organism Qualified Code(s): A41.9 - Sepsis, unspecified organism Comment/Plan: Patient doing much better now sepsis appears resolved. (6) Femoral hernia of left side Suspected K41.90 - UNIL FEMORAL HERNIA, W/O OBST OR GANGRENE, NOT SPCF RECUR Comment/Plan: Will consult surgery for further evaluation and management. - Plan Continue present care. Check ambulating O2 sats. Disposition Plan: Hopefully home in the next 24-48 hours Case Care Discussed with: Patient, Nursing Staff Education/Counseling Given To: Patient Education/Counseling Given Regarding: Diagnosis, Treatment, Prognosis, Disposition Plan Total Time: 35 minutes Critical Care: No Couseling Time (>50% in counseling/coordination): No
--- NOTE | 2016-03-14 11:22 | PCM.SURGCO ---
Consultation Date: 03/14/16 Requesting Physician: Sharri Ward Echo Vascular Technologist: Mynor Persaud Consult Reason: Other (Abdominal pain, possible hernia) - History of Present Illness 40-year-old female who was diagnosed with gastroenteritis at an outside hospital after having some fevers and chills. She was subsequently discharged home. She re-presented to our hospital was diagnosed with pneumonia. Patient was admitted and placed on IV antibiotics. Patient now admits to some intermittent left-sided abdominal pain which she feels may be related to hernia. She states that for the past several months she thinks she can feel bulge in the left side of her abdomen. She points to her mid upper abdomen when relating where this bulge is present. Patient states that she has no current nausea or vomiting or change in bowel habits. She still complains of shortness of breath. She denies having an incision over the site of were her pain and possible bulge are. I was asked for surgical consultation. Chief Complaint: cough, shortness of breath - Past Medical and Surgical History Cardiac History: Comment Only: Hypertension (pt. denies) Respiratory History: Reports: Asthma GI/ History: Reports: Kidney Stones Systemic History: Reports: Anemia Psychological History: Reports: Depression, Anxiety Past Surgical History: Reports: Hysterectomy, Tonsillectomy/Adnoidectomy Allergies aspirin Allergy (Verified 02/07/15 22:06) Unknown/See Comments VOMITING ciprofloxacin [From Cipro] Allergy (Verified 02/07/15 22:06) Hives* zolpidem [From Ambien] Adverse Reaction (Severe, Verified 03/12/16 08:14) See Comments hallucinosis Home Medications No Home Medications 03/11/16 - Social History Travel Outside of [place] in the Last 3 Months?: No Lives: with Spouse Smoking Status: Former smoker - Family History Reports: Hypertension, Diabetes (Grandmother), Cancer (Mother), Cardiac Disorders - Review of Systems Yes All systems reviewed and were negative except as marked Respiratory: Shortness of Breath Gastrointestinal: Abdominal Pain - Physical Exam Vital Signs: Initial Vitals Temperature 98.1 F 03/10/16 21:52 Pulse Rate 102 03/10/16 21:52 Respiratory Rate 28 H 03/10/16 21:52 Blood Pressure 157/71 03/10/16 21:52 Pulse Oxygen Saturation 89 L 03/10/16 21:52 Exam: General: Pleasant female No acute distress. HEENT: Normocephalic atraumatic. Sclerae nonicteric. Extraocular movements intact. Oral mucosa pink and moist. Neck: Supple. Nontender. Good range of motion. No masses. Trachea is midline. No cervical adenopathy. Lungs: Clear to auscultation. No rhonchi or wheezing. Good excursion. Heart: Regular rate and rhythm. No murmurs or rubs. Abdomen: Soft, morbidly obese, nondistended. No hepatosplenomegaly. No obvious abdominal wall defects or masses. No guarding or rebound. Normoactive bowel sounds noted Groins: No obvious hernias or masses. Back: No CVA tenderness. No ecchymosis. Extremities: no cyanosis clubbing or edema. No palpable deformities. Vascular: Dorsalis pedis and posterior tibial pulses palpable bilaterally. Skin: Warm and dry, no erythema , no ulcerations. No jaundice - Lab Results 03/12/16 05:12 03/12/16 05:12 - Assessment/Plan (1) LLQ pain R10.32 - LEFT LOWER QUADRANT PAIN Acute Comment: Patient has some left lower quadrant pain, but I am unable to appreciate a hernia clinically. This may be due to her morbid obesity. At any rate she does not appear to have any incarceration or strangulation involvement. I would recommend continuing to treat her pneumonia. I will see her as an outpatient for further evaluation once she has been adequately treated for her pulmonary issues. Her pain may be related to vigorous coughing from her pneumonia with a subsequent muscular strain. (2) Body mass index (BMI) of 40.0-44.9 in adult Z68.41 - BODY MASS INDEX (BMI) 40.0-44.9, ADULT Chronic Present on Admission: Yes Comment: Increases her risk for periprocedural and perioperative complications. Certainly this could also limit the evaluation for a hernia clinically. Will re -evaluate her clinically in the office. At some point she may benefit from imaging to assess better for the abdominal wall anatomy/presence of a hernia. (3) Morbid obesity E66.01 - MORBID (SEVERE) OBESITY DUE TO EXCESS CALORIES Chronic Present on Admission: Yes unspecified obesity type E66.01 - Morbid (severe) obesity due to excess calories Comment: Increases her risk for perioperative and periprocedural complications. This could also limit her evaluation clinically for hernia. Weight loss would be highly recommended. (4) Pneumonia J18.9 - PNEUMONIA, UNSPECIFIED ORGANISM Acute Present on Admission: Yes aspiration pneumonia right lower lobe of lung Comment: Continue medical management for pneumonia. Consider chest CT scan if no clinical improvement overall. Case Care Discussed with: Patient, Consultants, Family
[2016-03-14] MEDS ORDERED: Pharmacy Review for Metformin - IV Contrast Given SCH (12:00)
[2016-03-14] MEDS: PROBIOTIC BLEND TAB PO SCH ×2 (12:53→17:36)
--- NOTE | 2016-03-14 13:30 | DIRPT ---
CLINICAL DATA: Shortness of breath and chest pain EXAM: CT ANGIOGRAPHY CHEST WITH CONTRAST TECHNIQUE: Multidetector CT imaging of the chest was performed using the standard protocol during bolus administration of intravenous contrast. Multiplanar CT image reconstructions and MIPs were obtained to evaluate the vascular anatomy. CONTRAST: 80 mL Isovue 370 nonionic COMPARISON: Chest radiograph March 10, 2016 ; chest CT February 12, 2012 FINDINGS: There is no demonstrable pulmonary embolus. There is no thoracic aortic aneurysm or dissection. The visualized great vessels appear unremarkable. There is bibasilar airspace consolidation consistent with pneumonia. On axial slice 27 series 4, there is a 5 mm nodular opacity in the posterior segment right upper lobe. On axial slice 29 series 4, there is a 6 mm nodular opacity in the posterior segment of the right upper lobe. On axial slice 30 series 4, there is a 5 mm nodular opacity in the periphery of the posterior segment of the left upper lobe. On axial slice 35 series 4, there is a 6 mm nodular opacity in the posterior segment of the left upper lobe. On axial slice 32 series 4, there is a 6 mm nodular opacity in the superior segment of the right lower lobe. Visualized thyroid appears normal. There are stable small mediastinal lymph nodes which do not meet size criteria for pathologic significance. No adenopathy is appreciable by size criteria. There is moderate mediastinal fat, a stable finding. Pericardium is not thickened. No lesions are identified in the visualized upper abdomen. There is degenerative change in the thoracic spine. There are no blastic or lytic bone lesions. Review of the MIP images confirms the above findings. IMPRESSION: No demonstrable pulmonary embolus. Airspace consolidation in both lung bases. Several 5-6 mm nodular opacities bilaterally. Followup of these nodular opacity should be based on Fleischner Society guidelines. If the patient is at high risk for bronchogenic carcinoma, follow-up chest CT at 6-12 months is recommended. If the patient is at low risk for bronchogenic carcinoma, follow-up chest CT at 12 months is recommended. This recommendation follows the consensus statement: Guidelines for Management of Small Pulmonary Nodules Detected on CT Scans: A Statement from the Fleischner Society as published in Radiology 2005;237:395-400. 1 no apparent adenopathy. Electronically Signed By: Saad Jane III, M.D. On: 03/14/2016 13:28
[2016-03-14] MEDS: ENOXAPARIN 60 MG/0.6 ML PFS SQ SCH (17:36)
[2016-03-14] MEDS: AZITHROMYCIN 250 MG TAB PO SCH (17:37)
[2016-03-14] MEDS: MONTELUKAST SODIUM 10 MG TAB PO SCH (21:10)
[2016-03-14] MEDS: SODIUM CHLORIDE 0.9% 3 ML FLUSH FLUSH PRN (21:11)
[2016-03-15] MEDS: CEFTRIAXONE 1 GM in D5W 100 ML IV SCH ×2 (00:01→23:00)
[2016-03-15] MEDS: Albuterol/Ipratropium Neb 3 ML NEB NEB SCH ×4 (02:32→20:27)
[2016-03-15] MEDS: BENZONATATE 100 MG PERLES PO SCH ×3 (04:17→18:23)
[2016-03-15] MEDS: METHYLPREDNISOLONE 125 MG/2 ML VIAL IV SCH ×4 (04:17→22:59)
[2016-03-15] MEDS: SODIUM CHLORIDE 0.9% 3 ML FLUSH FLUSH SCH ×2 (04:18→17:34)
[2016-03-15] MEDS: REGULAR INSULIN 100 UNITS/ML - 3 ML VIAL SQ SCH ×4 (05:52→22:58)
--- NOTE | 2016-03-15 09:48 | PCM.SURGRO ---
- Subjective Patient: Reports: Pain is less, Shortness of breath. Denies: Nausea, Vomiting - Objective / Physical Exam Vital Signs: Temperature: 98 F (03/15/16 04:50) HR: 78 (03/15/16 04:50)RR: 18 (03/15/16 04:50 ) BP: 145/62 (03/15/16 04:50)Pulse Ox: 95 (03/15/16 07:54) General: Alert Respiratory: Diminished Cardiovascular: Regular rate and rhythm Gastrointestinal: Soft, Bowel Sounds, Tender (Mild left-sided without obvious hernia, no rebound). negative: Distended Laboratory/Diagnostics Reviewed: Laboratory Results - last 24 hr 03/12/16 03/14/16 03/14/16 12:40 12:42 17:12 POC Capillary Glucose 109 H 158 H Ur Random Microalbumin 4.3 03/14/16 03/15/16 21:01 04:56 POC Capillary Glucose 176 H 133 H Ur Random Microalbumin - Assessment and Plan (1) LLQ pain Acute R10.32 - LEFT LOWER QUADRANT PAIN Comment/Plan: No obvious hernia. Recommend follow-up in the office for re-evaluation once she is over her acute episode of pneumonia. (2) Body mass index (BMI) of 40.0-44.9 in adult Chronic Z68.41 - BODY MASS INDEX (BMI) 40.0-44.9, ADULT Present on Admission: Yes Comment/Plan: Increases perioperative and periprocedural morbidity and mortality. Weight loss is recommended. (3) Morbid obesity Chronic E66.01 - MORBID (SEVERE) OBESITY DUE TO EXCESS CALORIES Present on Admission: Yes unspecified obesity type E66.01 - Morbid (severe) obesity due to excess calories Comment/Plan: Increases perioperative and periprocedural morbidity and mortality. Weight loss is recommended. (4) Pneumonia Acute J18.9 - PNEUMONIA, UNSPECIFIED ORGANISM Present on Admission: Yes aspiration pneumonia right lower lobe of lung Comment/Plan: Continue antibiotics. Medical management.
[2016-03-15] MEDS: TUSSIONEX 5 ML ORAL SYRINGE PO SCH ×2 (09:56→23:03)
[2016-03-15] MEDS: FLUTICASONE PROPIONATE 16 GM BOT NAS SCH ×2 (09:56→22:58)
[2016-03-15] MEDS ORDERED: GUAIFENESIN-DEXTROMETHORPHAN LA TAB PO PRN (10:44)
[2016-03-15 10:48] LABS: MPV 10.1 fL (7.4-10.4)
[2016-03-15 11:07] LABS: BLOOD UREA NITROGEN 17 MG/DL (7-17); CALCIUM 8.2 MG/DL (8.4-10.2); CALCULATED OSMOLALITY 274 MOs/Kg (270-290); CHLORIDE 101 mEq/L (98-107); GLUCOSE 116 MG/DL (70-99); SEG NEUTROPHIL 81 % (45-76); SODIUM LEVEL 141 mEq/L (137-146)
[2016-03-15] MEDS: PROBIOTIC BLEND TAB PO SCH ×2 (11:08→17:35)
[2016-03-15] MEDS: GUAIFENESIN-DEXTROMETHORPHAN LA TAB PO SCH ×2 (12:29→23:00)
[2016-03-15] MEDS: Albuterol/Ipratropium Neb 3 ML NEB NEB PRN (17:05)
[2016-03-15] MEDS: AZITHROMYCIN 250 MG TAB PO SCH (17:35)
[2016-03-15] MEDS: ENOXAPARIN 60 MG/0.6 ML PFS SQ SCH (17:37)
--- NOTE | 2016-03-15 17:51 | GENMEDPROG ---
Currently: Reports: Cough, Wheezing, VELASQUEZ DVT Prophylaxis: Yes - Physical Examination Vital Signs and I&O: Last Vital Signs Temp 97.5 F 03/15/16 13:58 Pulse 89 03/15/16 13:58 Resp 18 03/15/16 13:58 BP 103/65 03/15/16 13:58 Pulse Ox 92 03/15/16 13:58 Oxygen Pulse Oxygen Saturation 92 O2 Device Room Air Oxygen Flow Rate 3 Fraction of Inspired Oxygen ( FIO2) Intake & Output 03/12/16 03/13/16 03/14/16 03/15/16 23:59 23:59 23:59 23:59 Intake Total 1118 1285 1279 803 Output Total 2300 2150 2200 1300 Balance -1182 -865 -921 -497 Patient's weight 111.175 kg 111.221 kg 111.082 kg General: Alert Respiratory: Diminished Cardiovascular: Regular rate and rhythm Lab/DI/Studies Reviewed: Laboratory Results - last 24 hr 03/14/16 03/15/16 03/15/16 21:01 04:56 10:20 WBC RBC Hgb Hct MCV MCH MCHC RDW Plt Count MPV Neut % (Auto) Lymph % (Auto) [place] % (Auto) Eos % (Auto) Baso % (Auto) Absolute Neuts (auto) Absolute Lymphs (auto) Seg Neuts % (Manual) Band Neutrophils % Lymphocytes % (Manual) Monocytes % (Manual) Absolute Neutrophils Absolute Lymphocytes Platelet Estimate RBC Morphology Sodium 141 Potassium 4.0 Chloride 101 Carbon Dioxide 26 Anion Gap 18 H BUN 17 Creatinine 0.60 Estimated GFR (MDRD) > 60 Glucose 116 H POC Capillary Glucose 176 H 133 H Calculated Osmolality 274 Calcium 8.2 L Magnesium 2.20 03/15/16 03/15/16 03/15/16 10:20 11:07 15:58 WBC 13.2 H RBC 4.71 Hgb 12.3 Hct 38.0 MCV 81 MCH 26.1 L MCHC 32.4 L RDW 14.5 Plt Count 260 MPV 10.1 Neut % (Auto) Cancelled Lymph % (Auto) Cancelled [facility] [facility] % (Auto) Cancelled Eos % (Auto) Cancelled Baso % (Auto) Cancelled Absolute Neuts (auto) Cancelled Absolute Lymphs (auto) Cancelled Seg Neuts % (Manual) 81 H Band Neutrophils % 4 Lymphocytes % (Manual) 14 L Monocytes % (Manual) 1 Absolute Neutrophils 11.22 H Absolute Lymphocytes 1.85 Platelet Estimate Norm RBC Morphology Norm Sodium Potassium Chloride Carbon Dioxide Anion Gap BUN Creatinine Estimated GFR (MDRD) Glucose POC Capillary Glucose 117 H 116 H Calculated Osmolality Calcium Magnesium CT ANGIOGRAPHY CHEST WITH CONTRAST TECHNIQUE: Multidetector CT imaging of the chest was performed using the standard protocol during bolus administration of intravenous contrast. Multiplanar CT image reconstructions and MIPs were obtained to evaluate the vascular anatomy. CONTRAST: 80 mL Isovue 370 nonionic COMPARISON: Chest radiograph March 10, 2016 ; chest CT February 12, 2012 FINDINGS: There is no demonstrable pulmonary embolus. There is no thoracic aortic aneurysm or dissection. The visualized great vessels appear unremarkable. There is bibasilar airspace consolidation consistent with pneumonia. On axial slice 27 series 4, there is a 5 mm nodular opacity in the posterior segment right upper lobe. On axial slice 29 series 4, there is a 6 mm nodular opacity in the posterior segment of the right upper lobe. On axial slice 30 series 4, there is a 5 mm nodular opacity in the periphery of the posterior segment of the left upper lobe. On axial slice 35 series 4, there is a 6 mm nodular opacity in the posterior segment of the left upper lobe. On axial slice 32 series 4, there is a 6 mm nodular opacity in the superior segment of the right lower lobe. Visualized thyroid appears normal. There are stable small mediastinal lymph nodes which do not meet size criteria for pathologic significance. No adenopathy is appreciable by size criteria. There is moderate mediastinal fat, a stable finding. Pericardium is not thickened. No lesions are identified in the visualized upper abdomen. There is degenerative change in the thoracic spine. There are no blastic or lytic bone lesions. Review of the MIP images confirms the above findings. IMPRESSION: No demonstrable pulmonary embolus. Airspace consolidation in both lung bases. Several 5-6 mm nodular opacities bilaterally. Followup of these nodular opacity should be based on Fleischner Society guidelines. If the patient is at high risk for bronchogenic carcinoma, follow-up chest CT at 6-12 months is recommended. If the patient is at low risk for bronchogenic carcinoma, follow-up chest CT at 12 months is recommended. This recommendation follows the consensus statement: Guidelines for Management of Small Pulmonary Nodules Detected on CT Scans: A Statement from the Fleischner Society as published in Radiology 2005;237:395-400. 1 no apparent adenopathy. Electronically Signed By: Saad Jane III, M.D. On: 03/14/2016 13:28 - Assessment (1) Pneumonia Acute J18.9 - PNEUMONIA, UNSPECIFIED ORGANISM Qualifiers: Pneumonia type: aspiration pneumonia Laterality: right Lung location: lower lobe of lung Comment/Plan: Quite possibly an aspiration pneumonia resulting from her recent viral gastroenteritis. However, it may be community acquired pneumonia that caused nausea & vomiting as part of the toxicity of the infection. Patient responding to current antibiotic therapy. Continue present care. (2) Hypoxia Acute R09.02 - HYPOXEMIA Comment/Plan: Check ambulating O2 sats today. (3) Impaired glucose tolerance Acute R73.02 - IMPAIRED GLUCOSE TOLERANCE (ORAL) Comment/Plan: Hemoglobin A1c is 6. Urinary microalbumin is pending. Glucoses below 200. (4) Asthma Acute J45.909 - UNSPECIFIED ASTHMA, UNCOMPLICATED Qualifiers: Asthma severity: moderate persistent Asthma complication type: with acute exacerbation Qualified Code(s): J45.41 - Moderate persistent asthma with ( acute) exacerbation Comment/Plan: Continue with Singulair and steroids. Nebs are helping some. (5) Sepsis Resolved A41.9 - SEPSIS, UNSPECIFIED ORGANISM Qualifiers: Sepsis type: sepsis due to unspecified organism Qualified Code(s): A41.9 - Sepsis, unspecified organism Comment/Plan: Patient doing much better now sepsis appears resolved. (6) Femoral hernia of left side Suspected K41.90 - UNIL FEMORAL HERNIA, W/O OBST OR GANGRENE, NOT SPCF RECUR Comment/Plan: Will consult surgery for further evaluation and management.
[2016-03-15] MEDS: MONTELUKAST SODIUM 10 MG TAB PO SCH (23:00)
[2016-03-15] MEDS: SODIUM CHLORIDE 0.9% 3 ML FLUSH FLUSH PRN (23:06)
[2016-03-16] MEDS: Albuterol/Ipratropium Neb 3 ML NEB NEB SCH ×4 (01:15→20:20)
[2016-03-16] MEDS: BENZONATATE 100 MG PERLES PO SCH ×3 (04:29→17:03)
[2016-03-16] MEDS: METHYLPREDNISOLONE 125 MG/2 ML VIAL IV SCH ×4 (04:29→21:03)
[2016-03-16] MEDS: REGULAR INSULIN 100 UNITS/ML - 3 ML VIAL SQ SCH ×4 (06:19→22:39)
[2016-03-16] MEDS: SODIUM CHLORIDE 0.9% 3 ML FLUSH FLUSH SCH ×2 (06:31→17:02)
[2016-03-16] MEDS: SODIUM CHLORIDE 0.9% 3 ML FLUSH FLUSH PRN ×3 (06:32→23:50)
[2016-03-16] MEDS: FLUTICASONE PROPIONATE 16 GM BOT NAS SCH ×2 (08:48→20:59)
[2016-03-16] MEDS: GUAIFENESIN-DEXTROMETHORPHAN LA TAB PO SCH ×2 (08:49→21:02)
[2016-03-16] MEDS: TUSSIONEX 5 ML ORAL SYRINGE PO SCH ×2 (08:54→21:14)
[2016-03-16] MEDS: PROBIOTIC BLEND TAB PO SCH ×2 (14:42→17:01)
--- NOTE | 2016-03-16 15:27 | PCM.SURGRO ---
- Subjective Patient: Reports: Pain is less - Objective / Physical Exam Vital Signs: Temperature: 97.9 F (03/16/16 14:16) HR: 95 (03/16/16 14:16)RR: 18 (03/16/16 14: 16) BP: 148/74 (03/16/16 14:16)Pulse Ox: 95 (03/16/16 14:16) Respiratory: Wheezes Cardiovascular: Regular rate and rhythm Gastrointestinal: Soft, Bowel Sounds, Tender (Mild on the left side without rebound, no obvious hernia). negative: Distended Laboratory/Diagnostics Reviewed: Laboratory Results - last 24 hr 03/15/16 03/15/16 03/16/16 15:58 20:16 05:51 POC Capillary Glucose 116 H 148 H 123 H 03/16/16 12:14 POC Capillary Glucose 100 H - Assessment and Plan (1) LLQ pain Acute R10.32 - LEFT LOWER QUADRANT PAIN Comment/Plan: I am still unable to appreciate a hernia. Will follow her up in the office. She may have muscular pain due to her vigorous coughing from her pneumonia. Will see as needed while she remains in the hospital. I can see her in the office as an outpatient after her discharge. (2) Body mass index (BMI) of 40.0-44.9 in adult Chronic Z68.41 - BODY MASS INDEX (BMI) 40.0-44.9, ADULT Present on Admission: Yes Comment/Plan: Increases any perioperative or periprocedural risks. (3) Morbid obesity Chronic E66.01 - MORBID (SEVERE) OBESITY DUE TO EXCESS CALORIES Present on Admission: Yes unspecified obesity type E66.01 - Morbid (severe) obesity due to excess calories Comment/Plan: Increases any perioperative or periprocedural risks. (4) Pneumonia Acute J18.9 - PNEUMONIA, UNSPECIFIED ORGANISM Present on Admission: Yes aspiration pneumonia right lower lobe of lung Comment/Plan: Antibiotic management per Medicine. Pneumonia management per Medicine.
[2016-03-16] MEDS: AZITHROMYCIN 250 MG TAB PO SCH (17:02)
[2016-03-16] MEDS: ENOXAPARIN 60 MG/0.6 ML PFS SQ SCH (17:02)
--- NOTE | 2016-03-16 18:26 | GENMEDPROG ---
Notes Reviewed: Yes Events from last night noted and discussed with Clinical Staff Current Medication List: Reviewed Currently: Reports: Cough, Wheezing, VELASQUEZ DVT Prophylaxis: Yes - Physical Examination Vital Signs and I&O: Last Vital Signs Temp 97.9 F 03/16/16 14:16 Pulse 95 03/16/16 14:16 Resp 18 03/16/16 14:16 BP 148/74 03/16/16 14:16 Pulse Ox 95 03/16/16 14:16 Oxygen Pulse Oxygen Saturation 95 O2 Device Nasal Cannula Oxygen Flow Rate 2 Fraction of Inspired Oxygen ( FIO2) Intake & Output 03/13/16 03/14/16 03/15/16 03/16/16 23:59 23:59 23:59 23:59 Intake Total 1285 1279 898 580 Output Total 2150 2200 1300 Balance -865 -921 -402 580 Patient's weight 245 lb 3.2 oz 244 lb 14.3 oz 245 lb 2 oz General: Alert, Oriented x3, No acute distress, Well appearing, Well nourished HEENT: Normal (Normocephalic, atraumatic;EOMI.Sclera white, Nares patent, without discharge or bleeding. No oropharyngeal lesions or erythema. Mucous membranes are dry.) Neck: Non-tender, Full range of motion, Normal Trachea alignment, Normal inspection (No cervical lymphadenopathy. No supraclavicular lymphadenopathy.), No Masses palpable, Supple Lymphatics: Normal (No lymph node swelling or pain.) Respiratory: Wheezes Cardiovascular: Regular rate and rhythm GI: Normal bowel sounds (normal active sounds), Soft (non-distended), Non tender , No hepatospenomegaly, No masses Extremities/Musculoskeletal: Normal pulses (DP pulses 2+ bilaterally) Skin: Warm,Dry and Intact, No rashes, No significant lesion Neurological: Strength at 5/5 X4 ext (Motor 5/5 throughout.), Normal tone, Cranial nerves 3-12 NL ( 2-12 grossly intact.) Psych/Mental Status: Appropriate, Normal Affect - Assessment (1) Asthma Acute J45.909 - UNSPECIFIED ASTHMA, UNCOMPLICATED Qualifiers: Asthma severity: moderate persistent Asthma complication type: with acute exacerbation Qualified Code(s): J45.41 - Moderate persistent asthma with ( acute) exacerbation Comment/Plan: Continue with Singulair and steroids. Nebs are helping some. (2) Hypoxia Acute R09.02 - HYPOXEMIA Comment/Plan: Check ambulating O2 sats today. (3) Impaired glucose tolerance Acute R73.02 - IMPAIRED GLUCOSE TOLERANCE (ORAL) Comment/Plan: Hemoglobin A1c is 6. Urinary microalbumin is pending. Glucoses below 200. (4) Pneumonia Acute J18.9 - PNEUMONIA, UNSPECIFIED ORGANISM Qualifiers: Pneumonia type: aspiration pneumonia Laterality: right Lung location: lower lobe of lung Comment/Plan: Quite possibly an aspiration pneumonia resulting from her recent viral gastroenteritis. However, it may be community acquired pneumonia that caused nausea & vomiting as part of the toxicity of the infection. Patient responding to current antibiotic therapy. Continue present care. (5) Morbid obesity Chronic E66.01 - MORBID (SEVERE) OBESITY DUE TO EXCESS CALORIES Qualifiers: Obesity type: unspecified obesity type Qualified Code(s): E66.01 - Morbid ( severe) obesity due to excess calories (6) Femoral hernia of left side Suspected K41.90 - UNIL FEMORAL HERNIA, W/O OBST OR GANGRENE, NOT SPCF RECUR Comment/Plan: Will consult surgery for further evaluation and management. (7) Sepsis Resolved A41.9 - SEPSIS, UNSPECIFIED ORGANISM Qualifiers: Sepsis type: sepsis due to unspecified organism Qualified Code(s): A41.9 - Sepsis, unspecified organism Comment/Plan: Patient doing much better now sepsis appears resolved. Case Care Discussed with: Patient, Family, Nursing Staff, Resource Management, Supervisor Cell Room Total Time: 40 Critical Care: No Code: 01465 (12+)
[2016-03-16] MEDS: MONTELUKAST SODIUM 10 MG TAB PO SCH (21:03)
[2016-03-16] MEDS: CEFTRIAXONE 1 GM in D5W 100 ML IV SCH (23:50)
[2016-03-17] MEDS: Albuterol/Ipratropium Neb 3 ML NEB NEB SCH ×4 (01:49→20:00)
[2016-03-17] MEDS: METHYLPREDNISOLONE 125 MG/2 ML VIAL IV SCH ×3 (02:03→14:42)
[2016-03-17] MEDS: SODIUM CHLORIDE 0.9% 3 ML FLUSH FLUSH PRN (02:04)
[2016-03-17] MEDS: BENZONATATE 100 MG PERLES PO SCH ×3 (02:04→17:28)
[2016-03-17] MEDS: REGULAR INSULIN 100 UNITS/ML - 3 ML VIAL SQ SCH ×4 (05:39→21:14)
[2016-03-17 05:44] VITALS: BMI 42.1
[2016-03-17] MEDS: SODIUM CHLORIDE 0.9% 3 ML FLUSH FLUSH SCH ×2 (05:50→17:28)
[2016-03-17] MEDS: FLUTICASONE PROPIONATE 16 GM BOT NAS SCH ×2 (09:48→20:19)
[2016-03-17] MEDS: GUAIFENESIN-DEXTROMETHORPHAN LA TAB PO SCH ×2 (09:49→20:19)
[2016-03-17] MEDS: TUSSIONEX 5 ML ORAL SYRINGE PO SCH ×2 (09:50→20:55)
[2016-03-17] MEDS: PROBIOTIC BLEND TAB PO SCH ×2 (11:55→17:27)
[2016-03-17] MEDS: ENOXAPARIN 60 MG/0.6 ML PFS SQ SCH ×2 (16:56→17:27)
[2016-03-17] MEDS: AZITHROMYCIN 250 MG TAB PO SCH (17:28)
[2016-03-17] MEDS: MONTELUKAST SODIUM 10 MG TAB PO SCH (20:20)
--- NOTE | 2016-03-17 20:43 | GENMEDPROG ---
Notes Reviewed: Yes Events from last night noted and discussed with Clinical Staff Current Medication List: Reviewed Currently: Reports: Cough, Wheezing, VELASQUEZ DVT Prophylaxis: Yes - Physical Examination Vital Signs and I&O: Last Vital Signs Temp 98.2 F 03/17/16 14:00 Pulse 76 03/17/16 20:00 Resp 16 03/17/16 20:00 BP 120/67 03/17/16 14:00 Pulse Ox 97 03/17/16 20:00 Oxygen Pulse Oxygen Saturation 97 O2 Device Nasal Cannula Oxygen Flow Rate 2 Fraction of Inspired Oxygen ( FIO2) Intake & Output 03/14/16 03/15/16 03/16/16 03/17/16 23:59 23:59 23:59 23:59 Intake Total 1279 898 820 960 Output Total 2200 4411 314 6645 Balance -921 -402 520 -1040 Patient's weight 244 lb 14.3 oz 245 lb 2 oz 245 lb 6 oz General: Alert, Oriented x3, No acute distress, Well appearing, Well nourished HEENT: Normal (Normocephalic, atraumatic;EOMI.Sclera white, Nares patent, without discharge or bleeding. No oropharyngeal lesions or erythema. Mucous membranes are dry.) Neck: Non-tender, Full range of motion, Normal Trachea alignment, Normal inspection (No cervical lymphadenopathy. No supraclavicular lymphadenopathy.), No Masses palpable, Supple Lymphatics: Normal (No lymph node swelling or pain.) Respiratory: Wheezes Cardiovascular: Regular rate and rhythm GI: Normal bowel sounds (normal active sounds), Soft (non-distended), Non tender , No hepatospenomegaly, No masses Extremities/Musculoskeletal: Normal pulses (DP pulses 2+ bilaterally) Skin: Warm,Dry and Intact, No rashes, No significant lesion Neurological: Strength at 5/5 X4 ext (Motor 5/5 throughout.), Normal tone, Cranial nerves 3-12 NL ( 2-12 grossly intact.) Psych/Mental Status: Appropriate, Normal Affect Lab/DI/Studies Reviewed: Laboratory Results - last 24 hr 03/16/16 03/17/16 03/17/16 21:28 05:13 11:42 POC Capillary Glucose 129 H 119 H 200 H 03/17/16 16:07 POC Capillary Glucose 120 H - Assessment (1) Pneumonia Acute J18.9 - PNEUMONIA, UNSPECIFIED ORGANISM Qualifiers: Pneumonia type: aspiration pneumonia Laterality: right Lung location: lower lobe of lung Comment/Plan: Quite possibly an aspiration pneumonia resulting from her recent viral gastroenteritis. However, it may be community acquired pneumonia that caused nausea & vomiting as part of the toxicity of the infection. Patient responding to current antibiotic therapy. Continue present care. (2) Hypoxia Acute R09.02 - HYPOXEMIA Comment/Plan: Check ambulating O2 sats today. (3) Asthma Acute J45.909 - UNSPECIFIED ASTHMA, UNCOMPLICATED Qualifiers: Asthma severity: moderate persistent Asthma complication type: with acute exacerbation Qualified Code(s): J45.41 - Moderate persistent asthma with ( acute) exacerbation Comment/Plan: Continue with Singulair and steroids. Nebs are helping some. (4) Morbid obesity Chronic E66.01 - MORBID (SEVERE) OBESITY DUE TO EXCESS CALORIES Qualifiers: Obesity type: unspecified obesity type Qualified Code(s): E66.01 - Morbid ( severe) obesity due to excess calories (5) Femoral hernia of left side Suspected K41.90 - UNIL FEMORAL HERNIA, W/O OBST OR GANGRENE, NOT SPCF RECUR Comment/Plan: Will consult surgery for further evaluation and management. (6) Sepsis Resolved A41.9 - SEPSIS, UNSPECIFIED ORGANISM Qualifiers: Sepsis type: sepsis due to unspecified organism Qualified Code(s): A41.9 - Sepsis, unspecified organism Comment/Plan: Patient doing much better now sepsis appears resolved. (7) Impaired glucose tolerance Acute R73.02 - IMPAIRED GLUCOSE TOLERANCE (ORAL) Comment/Plan: Hemoglobin A1c is 6. Urinary microalbumin is pending. Glucoses below 200.
[2016-03-17] MEDS: CEFTRIAXONE 1 GM in D5W 100 ML IV SCH (22:30)
[2016-03-18] MEDS: METHYLPREDNISOLONE 125 MG/2 ML VIAL IV SCH ×2 (01:12→14:31)
[2016-03-18] MEDS: SODIUM CHLORIDE 0.9% 3 ML FLUSH FLUSH PRN (01:16)
[2016-03-18] MEDS: BENZONATATE 100 MG PERLES PO SCH ×3 (02:53→18:24)
[2016-03-18] MEDS: Albuterol/Ipratropium Neb 3 ML NEB NEB SCH ×4 (04:34→20:03)
[2016-03-18] MEDS: SODIUM CHLORIDE 0.9% 3 ML FLUSH FLUSH SCH ×2 (05:21→18:24)
[2016-03-18] MEDS: REGULAR INSULIN 100 UNITS/ML - 3 ML VIAL SQ SCH ×4 (05:24→20:56)
[2016-03-18 08:13] LABS: MPV 10.4 fL (7.4-10.4)
[2016-03-18] MEDS: FLUTICASONE PROPIONATE 16 GM BOT NAS SCH ×2 (09:18→20:56)
[2016-03-18] MEDS: TUSSIONEX 5 ML ORAL SYRINGE PO SCH ×3 (09:21→23:21)
[2016-03-18] MEDS: GUAIFENESIN-DEXTROMETHORPHAN LA TAB PO SCH ×2 (09:21→20:57)
--- NOTE | 2016-03-18 09:36 | DIRPT ---
CLINICAL DATA: Breathing difficulty. EXAM: PORTABLE CHEST 1 VIEW COMPARISON: 03/14/[address], chest x-ray 03/10/2016 FINDINGS: Heart size is partially obscured by low lung volumes. There is persistent confluent opacity at the lung bases bilaterally, right greater than left and consistent with bilateral consolidation is better demonstrated on CT exam. There is no pulmonary edema. IMPRESSION: Persistent bilateral lower lobe infiltrates. Electronically Signed By: Shaylee Alexis M.D. On: 03/18/2016 09:33
[2016-03-18 10:16] LABS: SEG NEUTROPHIL 88 % (45-76)
[2016-03-18] MEDS: PROBIOTIC BLEND TAB PO SCH ×2 (11:52→18:23)
--- NOTE | 2016-03-18 11:57 | GENMEDPROG ---
Chief Complaint: Bilateral pneumonia Subjective Note: She is stable, but still feeling quite short of breath. Coughing, nonproductive of any sputum. Denies any chest pain. Now on 1 L nasal cannula oxygen. Notes Reviewed: Yes Events from last night noted and discussed with Clinical Staff Current Medication List: Reviewed Currently: Reports: Cough, Wheezing, VELASQUEZ DVT Prophylaxis: Yes - Physical Examination Vital Signs and I&O: Last Vital Signs Temp 96.6 F L 03/18/16 05:25 Pulse 68 03/18/16 08:00 Resp 18 03/18/16 08:00 BP 102/62 03/18/16 05:25 Pulse Ox 96 03/18/16 08:00 Oxygen Pulse Oxygen Saturation 96 O2 Device Nasal Cannula Oxygen Flow Rate 2 Fraction of Inspired Oxygen ( FIO2) Intake & Output 03/16/16 03/17/16 03/18/16 03/19/16 06:59 06:59 06:59 06:59 Intake Total 139 259 8690 200 Output Total 500 1400 1050 Balance 295 -680 266 200 Patient's weight 111.187 kg 111.3 kg 113.988 kg General: Alert, Oriented x3, No acute distress, Well appearing, Well nourished HEENT: Normal (Normocephalic, atraumatic;EOMI.Sclera white, Nares patent, without discharge or bleeding. No oropharyngeal lesions or erythema. Mucous membranes are dry.) Neck: Non-tender, Full range of motion, Normal Trachea alignment, Normal inspection (No cervical lymphadenopathy. No supraclavicular lymphadenopathy.), No Masses palpable, Supple Lymphatics: Normal (No lymph node swelling or pain.) Respiratory: Wheezes Cardiovascular: Regular rate and rhythm GI: Normal bowel sounds (normal active sounds), Soft (non-distended), Non tender , No hepatospenomegaly, No masses Extremities/Musculoskeletal: Normal pulses (DP pulses 2+ bilaterally) Skin: Warm,Dry and Intact, No rashes, No significant lesion Neurological: Strength at 5/5 X4 ext (Motor 5/5 throughout.), Normal tone, Cranial nerves 3-12 NL ( 2-12 grossly intact.) Psych/Mental Status: Appropriate, Normal Affect Lab/DI/Studies Reviewed: Laboratory Tests 03/18/16 06:50 WBC 15.8 H Hgb 12.0 - Assessment (1) Pneumonia Acute J18.9 - PNEUMONIA, UNSPECIFIED ORGANISM Qualifiers: Pneumonia type: aspiration pneumonia Laterality: right Lung location: lower lobe of lung Comment/Plan: Quite possibly an aspiration pneumonia resulting from her recent viral gastroenteritis. However, it may be community acquired pneumonia that caused nausea & vomiting as part of the toxicity of the infection. Patient responding to current antibiotic therapy. Continue present care, including nebs and empiric IV antibiotics. Chest x-ray done early this morning demonstrates continued bilateral opacities. Overall, I feel that she is improving since she is now on only 1 L nasal cannula oxygen. Hopefully we can wean the oxygen off in the next couple of days, if she can ambulate without difficulty or hypoxia, she can likely discharge home in the next few days. (2) Asthma Acute J45.909 - UNSPECIFIED ASTHMA, UNCOMPLICATED Qualifiers: Asthma severity: moderate persistent Asthma complication type: with acute exacerbation Qualified Code(s): J45.41 - Moderate persistent asthma with ( acute) exacerbation Comment/Plan: Continue with Singulair and steroids. Nebs are helping some. (3) Dehydration Acute E86.0 - DEHYDRATION Comment/Plan: IV fluids for rehydration. 30 mL/kg initially in the first 6 hrs, then maintenance fluids. (4) Hypoxia Acute R09.02 - HYPOXEMIA Comment/Plan: Check ambulating O2 sats today. (5) Impaired glucose tolerance Acute R73.02 - IMPAIRED GLUCOSE TOLERANCE (ORAL) Comment/Plan: Hemoglobin A1c is 6. Urinary microalbumin is pending. Glucoses below 200.
[2016-03-18] MEDS: ENOXAPARIN 60 MG/0.6 ML PFS SQ SCH (18:23)
[2016-03-18] MEDS: AZITHROMYCIN 250 MG TAB PO SCH (18:24)
[2016-03-18] MEDS: MONTELUKAST SODIUM 10 MG TAB PO SCH (20:57)
[2016-03-18] MEDS: CEFTRIAXONE 1 GM in D5W 100 ML IV SCH (22:45)
[2016-03-18] MEDS ORDERED: NS 250 ML IV ONE (23:14)
[2016-03-19] MEDS: Albuterol/Ipratropium Neb 3 ML NEB NEB SCH ×4 (02:07→19:46)
[2016-03-19] MEDS: METHYLPREDNISOLONE 125 MG/2 ML VIAL IV SCH ×2 (02:23→13:10)
[2016-03-19] MEDS: BENZONATATE 100 MG PERLES PO SCH ×3 (02:26→17:56)
[2016-03-19] MEDS: SODIUM CHLORIDE 0.9% 3 ML FLUSH FLUSH SCH ×2 (06:37→17:56)
[2016-03-19] MEDS: REGULAR INSULIN 100 UNITS/ML - 3 ML VIAL SQ SCH ×4 (06:38→21:16)
[2016-03-19] MEDS: GUAIFENESIN-DEXTROMETHORPHAN LA TAB PO SCH ×2 (08:21→21:17)
[2016-03-19] MEDS: FLUTICASONE PROPIONATE 16 GM BOT NAS SCH ×2 (08:21→21:16)
[2016-03-19] MEDS: TUSSIONEX 5 ML ORAL SYRINGE PO SCH ×2 (10:53→21:20)
[2016-03-19] MEDS ORDERED: TUSSIONEX 5 ML ORAL SYRINGE PO ONE (11:00)
[2016-03-19] MEDS: PROBIOTIC BLEND TAB PO SCH ×2 (11:04→17:56)
--- NOTE | 2016-03-19 16:39 | GENMEDPROG ---
Subjective Note: Patient has been slowly improving. Her oxygen levels are down to requiring only 1 L nasal cannula. Her voice is stronger. Notes Reviewed: Yes Events from last night noted and discussed with Clinical Staff Current Medication List: Reviewed Currently: Reports: Cough, Wheezing, VELASQUEZ DVT Prophylaxis: Yes - Physical Examination Vital Signs and I&O: Last Vital Signs Temp 98 F 03/19/16 14:15 Pulse 92 03/19/16 14:15 Resp 20 03/19/16 14:15 BP 119/70 03/19/16 14:15 Pulse Ox 92 03/19/16 14:15 Oxygen Pulse Oxygen Saturation 92 O2 Device Nasal Cannula Oxygen Flow Rate 1 Fraction of Inspired Oxygen ( FIO2) Intake & Output 03/16/16 03/17/16 03/18/16 03/19/16 23:59 23:59 23:59 23:59 Intake Total 306 024 3768 440 Output Total 300 2150 1300 2550 Balance 447 -0810 -857 -9250 Patient's weight 111.187 kg 111.3 kg 113.988 kg 114.107 kg General: Alert, Oriented x3, No acute distress, Well appearing, Well nourished HEENT: Normal (Normocephalic, atraumatic;EOMI.Sclera white, Nares patent, without discharge or bleeding. No oropharyngeal lesions or erythema. Mucous membranes are dry.) Neck: Non-tender, Full range of motion, Normal Trachea alignment, Normal inspection (No cervical lymphadenopathy. No supraclavicular lymphadenopathy.), No Masses palpable, Supple Lymphatics: Normal (No lymph node swelling or pain.) Respiratory: Diminished, Wheezes Cardiovascular: Regular rate and rhythm GI: Normal bowel sounds (normal active sounds), Soft (non-distended), Non tender , No hepatospenomegaly, No masses Extremities/Musculoskeletal: Normal pulses (DP pulses 2+ bilaterally) Skin: Warm,Dry and Intact, No rashes, No significant lesion Neurological: Strength at 5/5 X4 ext (Motor 5/5 throughout.), Normal tone, Cranial nerves 3-12 NL ( 2-12 grossly intact.) Psych/Mental Status: Appropriate, Normal Affect Lab/DI/Studies Reviewed: Abnormal Lab Results 03/18/16 03/19/16 03/19/16 20:04 05:57 11:41 POC Capillary Glucose 114 H 108 H 101 H 03/19/16 16:29 POC Capillary Glucose 167 H Laboratory Tests 03/12/16 12:40 Ur Random Microalbumin 4.3 - Assessment (1) Pneumonia Acute J18.9 - PNEUMONIA, UNSPECIFIED ORGANISM Qualifiers: Pneumonia type: aspiration pneumonia Laterality: right Lung location: lower lobe of lung Comment/Plan: Attempt to try ambulating O2 sats in a.m. off oxygen. If patient tolerates will be able to discharge home. (2) Hypoxia Acute R09.02 - HYPOXEMIA Comment/Plan: Check ambulating O2 sats in a.m. tomorrow (3) Impaired glucose tolerance Acute R73.02 - IMPAIRED GLUCOSE TOLERANCE (ORAL) Comment/Plan: Hemoglobin A1c is 6. Urinary microalbumin is 4. Glucoses below 200. (4) Asthma Acute J45.909 - UNSPECIFIED ASTHMA, UNCOMPLICATED Qualifiers: Asthma severity: moderate persistent Asthma complication type: with acute exacerbation Qualified Code(s): J45.41 - Moderate persistent asthma with ( acute) exacerbation Comment/Plan: Continue with Singulair and steroids. Nebs are helping some. (5) Sepsis Resolved A41.9 - SEPSIS, UNSPECIFIED ORGANISM Qualifiers: Sepsis type: sepsis due to unspecified organism Qualified Code(s): A41.9 - Sepsis, unspecified organism Comment/Plan: Patient doing much better now sepsis appears resolved. (6) Femoral hernia of left side Suspected K41.90 - UNIL FEMORAL HERNIA, W/O OBST OR GANGRENE, NOT SPCF RECUR Comment/Plan: Surgery recommended outpatient evaluation. - Plan Continue present care. Check ambulating O2 sats. Disposition Plan: Hopefully home when able to tolerate ambulating without oxygen requirement Case Care Discussed with: Patient, Family Education/Counseling Given To: Patient Education/Counseling Given Regarding: Diagnosis, Treatment, Prognosis, Follow Up , Disposition Plan Total Time: 45 minutes Critical Care: No Couseling Time (>50% in counseling/coordination): No
[2016-03-19] MEDS: AZITHROMYCIN 250 MG TAB PO SCH (17:55)
[2016-03-19] MEDS: ENOXAPARIN 60 MG/0.6 ML PFS SQ SCH (17:56)
[2016-03-19] MEDS: MONTELUKAST SODIUM 10 MG TAB PO SCH (21:17)
[2016-03-19] MEDS: CEFTRIAXONE 1 GM in D5W 100 ML IV SCH (23:04)
[2016-03-20] MEDS: Albuterol/Ipratropium Neb 3 ML NEB NEB SCH ×2 (01:30→07:41)
[2016-03-20] MEDS: METHYLPREDNISOLONE 125 MG/2 ML VIAL IV SCH (01:43)
[2016-03-20] MEDS: BENZONATATE 100 MG PERLES PO SCH ×2 (01:46→10:57)
[2016-03-20 05:48] VITALS: BP 98/64; TEMP 98.3
[2016-03-20] MEDS: SODIUM CHLORIDE 0.9% 3 ML FLUSH FLUSH SCH (06:13)
[2016-03-20] MEDS: REGULAR INSULIN 100 UNITS/ML - 3 ML VIAL SQ SCH ×2 (06:13→11:00)
[2016-03-20] MEDS: FLUTICASONE PROPIONATE 16 GM BOT NAS SCH (08:33)
[2016-03-20] MEDS: GUAIFENESIN-DEXTROMETHORPHAN LA TAB PO SCH (08:33)
[2016-03-20 09:27] VITALS: PULSE 96
[2016-03-20] MEDS: TUSSIONEX 5 ML ORAL SYRINGE PO SCH (10:57)
[2016-03-20] MEDS: PROBIOTIC BLEND TAB PO SCH (10:58)
--- NOTE | 2016-03-20 11:16 | PCM.DCS92 ---
- Final/Secondary Discharge Diagnosis (1) Pneumonia Acute J18.9 - PNEUMONIA, UNSPECIFIED ORGANISM Present on Admission: Yes aspiration pneumonia right lower lobe of lung Comment: Attempt to try ambulating O2 sats in a.m. off oxygen. If patient tolerates will be able to discharge home. (2) Hypoxia Acute R09.02 - HYPOXEMIA Present on Admission: Yes Comment: Check ambulating O2 sats in a.m. tomorrow (3) Impaired glucose tolerance Acute R73.02 - IMPAIRED GLUCOSE TOLERANCE (ORAL) Comment: Hemoglobin A1c is 6. Urinary microalbumin is 4. Glucoses below 200. (4) Asthma Chronic J45.909 - UNSPECIFIED ASTHMA, UNCOMPLICATED Present on Admission: Yes moderate persistent with acute exacerbation J45.41 - Moderate persistent asthma with (acute) exacerbation Comment: Continue with Singulair and steroids. Nebs are helping some. (5) Sepsis Resolved A41.9 - SEPSIS, UNSPECIFIED ORGANISM Present on Admission: Yes sepsis due to unspecified organism A41.9 - Sepsis, unspecified organism Comment: Patient doing much better now sepsis appears resolved. (6) Femoral hernia of left side Suspected K41.90 - UNIL FEMORAL HERNIA, W/O OBST OR GANGRENE, NOT SPCF RECUR Comment: Surgery recommended outpatient evaluation. Discharge Disposition: Home Discharge Condition: Stable Cognitive Discharge Status: Unimpaired Fuctional Discharge Status: Independent Physician Follow up/Referrals: None,No Provider [Primary Care Provider] - One Week New Prescriptions: Fluticasone Propionate [Flonase] 1 sprays GIUSEPPE BID #1 bottle Probiotic Blend [Yuridia Q] 1 tab PO BIDLS #60 tablet Guaifenesin-Dextromethorphan [Mucinex Dm] 2 tab PO BID #10 tablet.er Cefdinir [Omnicef] 300 mg PO BID #4 capsule Montelukast Sodium [Singulair] 10 mg PO HS #7 tablet Prednisone [Sterapred 10 mg/6 day pack] 21 tab PO DIR #1 pack Benzonatate [Tessalon] 200 mg PO Q8H #20 capsule Hydrocodone/Chlorphen Polis [Tussionex] 5 ml PO Q12H 7 Days Discharge Home Medication List Benzonatate [Tessalon] 200 mg PO Q8H #20 capsule 03/20/16 [Rx] Cefdinir [Omnicef] 300 mg PO BID #4 capsule 03/20/16 [Rx] Fluticasone Propionate [Flonase] 1 sprays GIUSEPPE BID #1 bottle 03/20/16 [Rx] Guaifenesin-Dextromethorphan [Mucinex Dm] 2 tab PO BID #10 tablet.er 03/20/16 [ Rx] Hydrocodone/Chlorphen Polis [Tussionex] 5 ml PO Q12H 7 Days 03/20/16 [Rx] Montelukast Sodium [Singulair] 10 mg PO HS #7 tablet 03/20/16 [Rx] Prednisone [Sterapred 10 mg/6 day pack] 21 tab PO DIR #1 pack 03/20/16 [Rx] Probiotic Blend [Yuridia Q] 1 tab PO BIDLS #60 tablet 03/20/16 [Rx] New Discharge Medications (Rx) Benzonatate [Tessalon] 200 mg PO Q8H #20 capsule 03/20/16 [Rx] Cefdinir [Omnicef] 300 mg PO BID #4 capsule 03/20/16 [Rx] Fluticasone Propionate [Flonase] 1 sprays GIUSEPPE BID #1 bottle 03/20/16 [Rx] Guaifenesin-Dextromethorphan [Mucinex Dm] 2 tab PO BID #10 tablet.er 03/20/16 [ Rx] Hydrocodone/Chlorphen Polis [Tussionex] 5 ml PO Q12H 7 Days 03/20/16 [Rx] Montelukast Sodium [Singulair] 10 mg PO HS #7 tablet 03/20/16 [Rx] Prednisone [Sterapred 10 mg/6 day pack] 21 tab PO DIR #1 pack 03/20/16 [Rx] Probiotic Blend [Yuridia Q] 1 tab PO BIDLS #60 tablet 03/20/16 [Rx] O2 Device: Room Air Additional Instructions: please schedule f/u appt with office administration instructor gen rodney BOURGEOIS for 1 or 2 weeks Diet at Discharge: As Tolerated, Regular Activity: No Restrictions, As Tolerated Call Office For: Worsening Symptoms, Fever over 100.5, Pain Uncontrolled By Meds - DC Summary Notes Hospital Course Note:: Discharge summary on patient named CHI MILIAN admitted to [facility] on 03/11/16 by Elida Randolph MD. Date of discharge is []. Unfortunate 40-year-old female who suffered an aspiration pneumonia and had severe hypoxemia associated with it. She was admitted on and is finally able to discharge today. She has had severe hypoxemia complicating her hospital course as well as difficulty with shortness of breath. She has very slowly improved and today she is able to discharge home on 2 more days of treatment with Omnicef. At this point patient is able to ambulate on room air with O2 sats of 92%. She has reached maximal benefit of hospitalization. She is stable for discharge home. Total Time: 45 min - Physical Exam Vital Signs: Last Vital Signs Temp 98.3 F 03/20/16 05:42 Pulse 96 03/20/16 09:10 Resp 18 03/20/16 07:43 BP 98/64 L 03/20/16 05:42 Pulse Ox 95 03/20/16 10:30 Oxygen Pulse Oxygen Saturation 95 O2 Device Room Air Oxygen Flow Rate 1 Fraction of Inspired Oxygen ( FIO2) Constitutional: Alert, Distress (difficulty breathing), Restless Oriented to: Time, Person, Place - HEENT Head: Normal Eye: Normal (PERRL; EOMI) Oropharynx: Normal, Red (posterior pharynx). negative: Exudate, Tonsillar Hypertrophy, [place] Tympanic Membrane: Normal ENT EAC: Normal Nose: negative: Bleeding, Congestion, Discharge, Deformity - Respiratory/Cardiovascular Respiratory: Diminished, Wheezes Cardiovascular: Normal (RRR , Normal S1, S2. No murmurs, rubs, or gallops. PMI non-displaced. Carotids: no carotid bruits. No bradycardia or tachycardia. DP pulses 2+ bilaterally.) - GI Auscultation: Normal Palpation: Normal. negative: Enlarged liver, Enlarged spleen, Fluid Wave, Mass Tenderness: Non tender Bailey's Sign: Negative Rectal Exam: Deferred - Musculoskeletal Back: Normal. negative: CVA Tenderness Extremities: Normal, Pedal Pulse (normal), Radial Pulse (noraml). negative: Calf Tenderness, Clubbing, Cyanosis, Edema - Integumentary Skin: Normal (Warm dry no rashes) Lymphatics: Normal (No lymph node swelling or pain.) - Neurologic Memory Impaired: Normal Motor Function: Normal (Motor 5/5 throughout.Normal tone, Pulses 2+ No cyanosis or edema, FROM) Cranial Nerve: Normal (CN II-XII intact sensation, strength 5/5) Cerebellar: Normal Mood Description: Anxious Thought: Coherent Perception: Normal - Other Exam Other Exam Findings: Laboratory Results - last 24 hr 03/19/16 03/19/16 03/20/16 11:41 16:29 05:51 POC Capillary Glucose 101 H 167 H 131 H
== END 2016-03-20 13:00 | disposition home or self-care (01) | DRG 871 ==
LOC: EDMC 21:33 → MPS3 03-11 01:05
PROVIDERS: ADMIT Family Medicine; ATTEND Hospitalist
PROC: 039B3ZZ Drainage of Right Radial Artery, Percutaneous Approach (ICD-10-PCS; principal; 2016-03-11)
DX: A41.9 Sepsis, unspecified organism (principal); J69.0 Pneumonitis due to inhalation of food and vomit; Z68.41 Body mass index [BMI] 40.0-44.9, adult; E66.01 Morbid (severe) obesity due to excess calories; J45.41 Moderate persistent asthma with (acute) exacerbation; R09.02 Hypoxemia; E86.0 Dehydration; I10 Essential (primary) hypertension; Z87.891 Personal history of nicotine dependence; R73.02 Impaired glucose tolerance (oral); K41.90 Unilateral femoral hernia, without obstruction or gangrene, not specified as recurrent; Z79.899 Other long term (current) drug therapy; Z23 Encounter for immunization; Z83.3 Family history of diabetes mellitus
CPT/HCPCS: 31720; 36415; 36600; 71010; 71020; 71275; 80048; 80053; 81001; 82043; 82803; 82962; 83036; 83605; 83735; 84484; 85007; 85025; 85027; 85610; 85730; 87040; 87070; 87086; 87205; 89220; 90471; 90732; 93005; 94640; 96361; 96365; 96366; 96372; 96375; 98960; 99285; A9698; G0237; J0456; J0696; J1650; J2405; J2930; J3490; J7060; J7070; J7620